=== PATIENT | female | born 1960 | race Caucasian/White ===

== ENCOUNTER 2018-09-28 02:24 | Emergency (ER) | payer OTHER, SELFPAY ==
--- NOTE | 2018-09-28 02:39 | ED.GENADUL_ITS ---
Discharge Plan Disposition Patient Disposition: HOME Condition: Good Discharge Details Chief Complaint: Urinary Clinical Impression: Calculus of proximal left ureter Primary Care Provider: Agnes Jiang ED Provider: Neeraj Loera [place] Meds and New Rx's Prescriptions: New ibuprofen 600 mg tablet 600 mg PO TID PRN (Reason: pain) Qty: 20 RF: 0 ondansetron 4 mg tablet,disintegrating 4 mg PO QID PRN (Reason: nausea and vomiting) Qty: 10 RF: 0 hydrocodone-acetaminophen 5-300 mg tablet 1 tab PO Q4H PRN (Reason: pain) Qty: 10 RF: 0 tamsulosin [Flomax] 0.4 mg capsule 0.4 mg PO DAILY Qty: 20 RF: 0 Discharge Instructions Instructions: Ureteral Stones (ED) Additional Instructions: You have a 5 mm kidney stone in the proximal left ureter. This may or may not pass on its own. Stay hydrated. Use Motrin for pain. Vicodin for breakthrough pain. Flomax daily. Zofran if needed for nausea. Contact urology on Sunday for follow-up if you have not passed the stone over the weekend. Return to ED if you develop fever, uncontrolled pain, uncontrolled vomiting Referrals: Oniel Webb MD [ [facility] STAFF PHYSICIAN] - Medical Decision Making Patient with left flank pain sudden onset tonight. History of kidney stones and reports that it feels the same. Urinalysis already obtained and is positive for blood. Patient uncomfortable with left CVAT. IV established. Laboratory studies sent. CT scan ordered. Fluids, Toradol, Zofran ordered for symptoms. Toradol did not help the patient. She was given morphine. White count is normal. Kidney function normal. CT scan shows a 5 mm UPJ stone with mild hydronephrosis. Pain is better controlled with morphine. She is very comfortable. Still has some residual pain so we will get a Vicodin. We will also start Flomax. Will discharge home to follow-up with urology this week. Return to ED for fever, uncontrolled pain, uncontrolled vomiting. Reviewed the [place] prescription database. Patient has no narcotic prescriptions in the last year. State consent form signed. Information sheet given to patient. Lab Data Lab results reviewed: Yes I reviewed the patient's lab results. HPI General Mode of arrival: wheelchair . Date/Time Provider Initiated Documentation: 09/28/18 02:37 . Limitations to Documentation: no limitations . Information obtained by: patient . HPI Narrative: Patient presents to ED with left back pain. Patient noticed a twinge yesterday but did not think much of it as it went away. Had recurrent pain at 1 AM. Pain has progressed and is now causing nausea/vomiting. She describes a 10 out of 10 pain like previous kidney stones. She denies any fever. She denies chest pain or shortness of breath. She has no abdominal pain. She has no urinary symptoms. 2 previous stones that she has had passed on their own with no surgical intervention. Related Data Home Medications Medication Instructions Recorded Confirmed hydrocodone-acetaminophen 1 tab PO Q4H PRN #10 tab 09/28/18 ibuprofen 600 mg PO TID PRN #20 tab 09/28/18 ondansetron 4 mg PO QID PRN #10 tab 09/28/18 tamsulosin [Flomax] 0.4 mg PO DAILY #20 cap 09/28/18 Previous Rx's Medication Instructions Recorded hydrocodone-acetaminophen 1 tab PO Q4H PRN #10 tab 09/28/18 ibuprofen 600 mg PO TID PRN #20 tab 09/28/18 ondansetron 4 mg PO QID PRN #10 tab 09/28/18 tamsulosin [Flomax] 0.4 mg PO DAILY #20 cap 09/28/18 Allergies Allergy/AdvReac Type Severity Reaction Status Date / Time No Known Allergies Allergy Unverified 09/28/18 02:49 Review of Systems Review of Systems As documented in HPI otherwise negative as below. Const: no fever, chills, weakness Resp: no cough, SOB, pleuritic pain CV: no CP, diaphoresis, edema, syncope GI: nausea/vomiting; no abdominal pain, diarrhea Neuro: no headache, numbness, focal weakness, confusion PFSH Medical History Endometriosis Hyperlipidemia Impingement syndrome of shoulder region Kidney stone Microscopic hematuria Mixed anxiety and depressive disorder Osteoarthritis Plantar fasciitis Syncope and collapse THYROMEGALY TILT TABLE TEST POSITIVE Tremor Surgical History BSO (~1999) Cholecystectomy (~2000) HYSTERECTOMY (~1999) Family History Mother Ruptured cerebral aneurysm Father Hypertensive disorder, systemic arterial Diabetes Depression Sister No problems noted. Sister No problems noted. Brother No problems noted. Brother No problems noted. Brother No problems noted. Brother No problems noted. Aunt Hypothyroidism Social History Smoking/Tobacco Use Status: Never Alcohol Intake: never Drug use: Never Do you feel safe at home: Yes Do you feel safe in your relationship?: Yes Exam Narrative Exam Narrative: Vitals: Afebrile. Mildly elevated blood pressure. Const: Obese female appears uncomfortable. HEENT: NC/AT. Normal facial exam. Eyes: Normal conjunctiva and sclera. Neck: Supple. Trachea midline. Lungs: Normal respiratory effort. Lungs are clear. Cor: RRR without murmur/gallop. Good radial pulses. GI: Soft. NT/ND. No guarding or rebound. Back: Left CVAT. Neuro: A+O x 3. CN grossly in tact. Good strength and no focal deficit. Skin: Warm and dry without rash.
[2018-09-28 02:44] VITALS: BP 126/95; PULSE 68; RESP 18; TEMP 36.4; O2SAT 95
[2018-09-28 02:52] LABS: Bilirubin Negative (Negative); Blood Large (Negative); Clarity Clear; Glucose Negative (Negative); Ketones Negative (Negative); Leukocyte Esterase Negative (Negative); Nitrite Negative (Negative); Specific Gravity 1.025 (1.005-1.025); Urobilinogen 0.2 EU/dL (Up TO 0.2)
[2018-09-28 02:58] LABS: Bacteria Few HPF (Negative); C & S Indicated? No/Sq. Contamination; Casts Negative LPF (Negative); Crystals Negative HPF (Negative); Epithelial Cells Many HPF (Negative); Mucus Negative (Negative); RBC 20-50 (0-2); WBC 0-2 HPF (0-5)
[2018-09-28] MEDS: Ketorolac 15 MG/ML VIAL IVP (03:07)
[2018-09-28] MEDS: Ondansetron 4 MG/2 ML VIAL IVP (03:07)
[2018-09-28] MEDS: Normal Saline 1,000 ML 1000 ML IV (03:08)
[2018-09-28 03:25] LABS: Abs Immature Grans 0.02 k/cumm (0.0-0.09); Absolute Basophil Count 0.02 k/cumm (0.0-0.2); Absolute Eosinophil Count 0.23 k/cumm (0.0-0.7); Absolute Lymphocyte Count 2.08 k/cumm (1.2-3.4); Absolute Monocyte Count 0.46 k/cumm (0.11-0.7); Absolute Neutrophil Count 5.07 k/cumm (1.2-6.7); Basophils % 0.3; Eosinophils % 2.9; HCT 39.2 % (36.0-46.0); HGB 13.2 g/dL (12.0-15.5); Immature Grans % 0.3; Lymphocytes % 26.4; Mean Corp. HGB Concentration 33.7 g/dL (32.0-36.0); Mean Corpuscular Hemoglobin 28.8 pg (27.0-33.0); Mean Corpuscular Volume 85.6 fL (80-95); Mean Platelet Volume 11.4 fL (8.0-11.0); Monocytes % 5.8; Neutrophils % 64.3; Platelet Count 239 x1000/uL (130-400); RBC 4.58 m/cumm (4.00-5.20); RBC Distribution Width 14.8 % (11.7-14.6); White Blood Cell Count 7.88 k/cumm (4.4-10.8)
[2018-09-28 03:34] LABS: Anion Gap 9.2 mmol/L (3-11); BUN 17 mg/dL (7-18); CO2 25.8 mmol/L (21.0-32.0); CREATININE 0.81 mg/dL (0.55-1.02); Chloride 102 mmol/L (98-107); Glucose 112 mg/dL (70-100); Potassium 3.8 mmol/L (3.5-5.1); Sodium 137 mmol/L (136-145)
--- NOTE | 2018-09-28 04:04 | DI.CT_ITS ---
SYMPTOM/DIAGNOSIS: LT FLANK PAIN RENAL COLIC CT: There is a 5 mm. stone at the left ureteropelvic junction causing mild hydronephrosis. No additional urinary tract calculi are seen. The right kidney shows a cyst at the mid to lower pole. The bladder is unremarkable. The patient is status post hysterectomy. There is no bowel dilatation or inflammatory change. The appendix appears normal. There is no free air or free fluid. The visualized portions of the lung bases appear clear. The liver, spleen, pancreas and adrenals are unremarkable. The patient is status post cholecystectomy. IMPRESSION: 5 mm. stone at the left ureteropelvic junction causing mild hydronephrosis.
[2018-09-28 04:25] VITALS: BP 119/61; PULSE 90; RESP 97; TEMP 36.8
--- NOTE | 2018-09-28 04:43 | DI.VRAD_ITS ---
EXAM: CT Abdomen and Pelvis Without Contrast EXAM DATE/TIME: 09/28/2018 3:03 AM CLINICAL HISTORY: 57 years old, female; Abdominal pain; Flank; Left; Prior surgery; Surgery date: 6+ months; Surgery type: Hysterectomy, gallbladder TECHNIQUE: Imaging protocol: Axial computed tomography images of the abdomen and pelvis without contrast. Coronal and sagittal reformatted images were created and reviewed. Radiation optimization: All CT scans at this facility use at least one of these dose optimization techniques: automated exposure control; mA and/or kV adjustment per patient size (includes targeted exams where dose is matched to clinical indication); or iterative reconstruction. COMPARISON: No relevant prior studies available. FINDINGS: ABDOMEN: Liver: No suspicious lesions. Gallbladder and bile ducts: Cholecystectomy. Pancreas: Unremarkable. Spleen: No suspicious lesions. Adrenals: Adrenal glands are mildly hypertrophied. Kidneys and ureters: 5 mm left UPJ stone causing mild hydronephrosis. Stomach and bowel: Unremarkable. No inflammed or dilated loops. Appendix: No evidence of appendicitis. PELVIS: Bladder: Unremarkable as visualized. Reproductive: Unremarkable as visualized. ABDOMEN and PELVIS: Intraperitoneal space: No free air. No significant fluid collection. Bones/joints: No acute fracture. No dislocation. Soft tissues: Unremarkable. Vasculature: Unremarkable. Lymph nodes: Unremarkable. IMPRESSION: 5 mm left UPJ stone causing mild hydronephrosis. Dictated and Authenticated by: Nicolás Luis MD. Ordering:LANDY Pickard MD
[2018-09-28] MEDS: HYDROcodone 5/Acetaminophen 325 TAB PO (04:59)
[2018-09-28] MEDS: Tamsulosin 0.4 MG CAPCR PO (04:59)
[2018-09-28 05:12] VITALS: BP 118/68; PULSE 80; RESP 16; TEMP 36.7; O2SAT 97
== END 2018-09-28 05:13 | disposition home or self-care (01) ==
PROVIDERS: Emergency Provider Emergency Medicine; PCP Family Medicine
DX: N13.0 Hydronephrosis with ureteropelvic junction obstruction (principal); Z87.442 Personal history of urinary calculi
CPT/HCPCS: 36415; 80048; 96361; 96374; 96375; 99284; 74176; 81003; 81015; 85025; J1885; J2405

== ENCOUNTER 2020-05-22 14:34 | Outpatient (REF) | payer OTHER, SELFPAY | END 2020-05-22 14:54 | LOC: LBN 14:34 | PROVIDERS: PCP Nurse Practitioner Family; Visit Provider Nurse Practitioner Family | DX: N39.0 Urinary tract infection, site not specified (principal) | CPT/HCPCS: 87077; 87086; 87186 ==

== ENCOUNTER 2020-07-24 01:34 | Emergency (ER) | payer OTHER, SELFPAY ==
[2020-07-24 01:45] VITALS: BP 123/78; PULSE 71; RESP 16; TEMP 36.7; O2SAT 98
--- NOTE | 2020-07-24 02:05 | W.ED.GENAD ---
Discharge Plan Disposition Patient Disposition: HOME Condition: Stable Discharge Details Clinical Impression: Left ureteral calculus Primary Care Provider: Natalie Sanchez ED Provider: Ric Gatica Home Meds and New Rx's Prescriptions: New levofloxacin 750 mg tablet 750 mg PO DAILY Qty: 5 RF: 0 ondansetron 4 mg tablet,disintegrating 4 mg PO Q8H PRN (Reason: nausea and vomiting) Qty: 30 RF: 0 oxycodone 5 mg tablet 5 mg PO Q8H PRNQty: 12 RF: 0 Continued ibuprofen 600 mg tablet 600 mg PO TID PRN (Reason: pain) Qty: 20 RF: 0 Discharge Instructions Instructions: Kidney Stones (ED) Additional Instructions: Your cat scan showed a 5mm kidney stone follow up with your urologist as soon as possible you can take 1000mg tylenol and 600mg ibuprofen every 6 hours as needed for pain. If you need additional pain relief take 1 oxycodone, do not drink alcohol or drive if you take this medicine if you have severe worsening pain, fevers or persistent vomit return to the emergency department Medical Decision Making 59 yo female who states she has a history of kidney stones comes in with chief compalint of I have a kidney stone. She states her last kidney stone was in september of 2018. She was feeling fine but then had sudden left sided back and oblique pain with nausea, no vomit and denies fevers or abdominal pain. She arrives in pain with no cva tenderness, no abdominal tenderness, no midline back pain. Given the acute onset of symptoms and her history suspect kidney stone, denies dysuria or changes in urination so doubt infection. Will obtain ct renal colic to evaluate for stone and reassess after she receives medication. Given lack of abdominal tenderness doubt intrabdominal pathology such as appendicitis or sbo. labs unremarkable other than hematuria and ct on my read shows left ureteral calculus. She feels significantly better, no vomit and no abdominal tenderness. If vrad sees no other acute findings will d/c and she is comfortable with following up with her urologist [place] [facility] from [facility] confirms 5mm kidney stone at left upj and also has mild stranding. Given this finding will start on antibiotics to treat possible uti as well, no fevers, leukocytosis or other findings to suggest sepsis at this time. She feels well enough for d/c and will have her f/u with her urologist carmelita and return precautions given Differential Diagnosis Differential Diagnosis: kidney stone, pyelo, cystitis Medical Records Medical records reviewed: Yes I reviewed the patient's medical records. Imaging Data Radiologic Study: Attestation: I personally reviewed and interpreted this imaging study as follows: Imaging: CT Scan Radiologist's impression: IMPRESSION: 1. Mild left perinephric stranding. Left hydronephrosis with 5 mm calcified stone at the left UPJ. (a stone was identified in a similar location on a prior examination dated 09/28/2018) 2. A few scattered colon diverticuli without evidence of diverticulitis Lab Data Lab results reviewed: Yes I reviewed the patient's lab results. HPI General Mode of arrival: ambulatory. Date/Time Provider Initiated Documentation: 07/24/20 01:35. Limitations to Documentation: no limitations. Information obtained by: patient. History of Present Illness 59 year old F presents to the emergency department with the chief complaint of left flank pain, described as moderate, Patient started experiencing this hour(s) (2) and it has been constant. No relieving factors improve symptom(s), No exacerbating factors reported . Patient did receive the following treatments prior to arrival, none Related Data Home Medications Medication Instructions Recorded Confirmed ibuprofen 600 mg PO TID PRN #20 tab 09/28/18 07/24/20 levofloxacin 750 mg PO DAILY #5 tab 07/24/20 ondansetron 4 mg PO Q8H PRN #30 tab 07/24/20 oxycodone 5 mg PO Q8H PRN #12 tab 07/24/20 Previous Rx's Medication Instructions Recorded ibuprofen 600 mg PO TID PRN #20 tab 09/28/18 levofloxacin 750 mg PO DAILY #5 tab 07/24/20 ondansetron 4 mg PO Q8H PRN #30 tab 07/24/20 oxycodone 5 mg PO Q8H PRN #12 tab 07/24/20 Allergies Allergy/AdvReac Type Severity Reaction Status Date / Time No Known Allergies Allergy Unverified 07/24/20 01:56 General Stated Complaint: FlankPain MAK: 3 Review of Systems All systems reviewed & are unremarkable except as noted in HPI and below Constitutional Constitutional: Denies chills, Denies fever(s) and Denies weakness Cardiovascular Cardiovascular: Denies chest pain and Denies dyspnea Respiratory Respiratory: Denies cough and Denies dyspnea Gastrointestinal Gastrointestinal: Denies abdominal pain and Denies vomiting Musculoskeletal Musculoskeletal: Denies joint swelling Neurologic Neurologic: Denies weakness [facility] Medical History Endometriosis Generalized anxiety disorder Hyperlipidemia Kidney stone Major depressive disorder Microscopic hematuria Negative cystoscopy Neurocardiogenic syncope Obstructive sleep apnea Osteoarthritis Recurrent cystitis Tubular adenoma of colon Surgical History History of total hysterectomy with bilateral salpingo-oophorectomy (BSO) S/P cholecystectomy Family History Mother , 66 Ruptured cerebral aneurysm Father , 88 Diabetes Depression Hypertension Dementia Sister Diabetes Breast cancer 40s Sister No problems noted. Brother No problems noted. Brother No problems noted. Brother Parkinson disease Brother Diabetes Paternal Grandfather Stroke Paternal Grandmother , 70 Depression Maternal Grandfather No problems noted. Maternal Grandmother Liver cancer Social History Smoking/Tobacco Use Status: Never Smoking risk assessment performed?: Yes Alcohol Intake: current Alcohol Intake frequency: a few times a month Alcohol type: beer, wine and hard liquor Drug use: Never Substance use type: does not use Caregiver/Support person: No Household members: spouse Housing: house Communication Needs: None Do you need help understanding health information?: Never Pets and animals: Yes Pets and animals: cat(s) Sexually active: Yes Do you think of yourself as: lesbian/purvis/homosexual Current gender identity: female What is your relationship status?: How often do you talk on the phone with friends or family?: three or more times per week How often do you get together with friends or relatives?: three or more times per week How often do you attend taoist or advent services?: 4 or more times per year Panel score (0-1 are the most socially isolated patients): 3 What type of physical activity do you participate in: walking and swimming Duration: 30-45 minutes/day Frequency: 1-2 times per week Willa/Holiness: Muslim Special willa needs: No Agree to transfusion: No Do you feel safe at home: Yes Do you feel safe in your relationship?: Yes History History 0 Para Hx # Term Pregnancies Multiple births Hx # Pregnancies Ectopic pregnancies AB induced Hx Number of Living Children AB spontaneous Exam Const General: no acute distress Orientation: alert HENMT Head: normal to inspection Ears: external ears normal General nose exam: external nose normal Mouth: moist mucous membranes Eyes General: appearance normal, both eyes and all related structures Neck Neck: normal visual inspection Resp Effort & Inspection: normal respiratory effort and able to speak in complete sentences Cardio Rate: regular rate General: bladder normal to palpation Bimanual Exam- Vagina & Uterus: bladder normal to palpation Skin General skin exam: no rashes or lesions noted Neuro General: patient alert and patient oriented x3 Extrem General: normal to inspection Psych Mental Status: mental status grossly normal Course Vital Signs Vital signs: Vital Signs Temperature 36.7 C 07/24/20 01:45 Pulse 71 07/24/20 01:45 Respiratory Rate 16 07/24/20 01:45 Blood Pressure 123/78 07/24/20 01:45 Pulse Oximetry 98 07/24/20 01:45 Temperature 36.7 C 07/24/20 01:45 Temperature Source Skin 07/24/20 01:45 Pulse 71 07/24/20 01:45 Respiratory Rate 16 07/24/20 01:45 Blood Pressure 123/78 07/24/20 01:45 Blood Pressure Position Sitting 07/24/20 01:45 Pulse Oximetry 98 07/24/20 01:45 Oxygen Delivery Method Room Air 07/24/20 01:45 Oxygen Flow Rate 0 07/24/20 01:45 Pain Level 10 07/24/20 01:45
[2020-07-24 02:20] LABS: Abs Immature Grans 0.02 10^3/uL (0.0-0.06); Absolute Basophil Count 0.05 10^3/uL (0.0-0.2); Absolute Eosinophil Count 0.24 10^3/uL (0.0-0.7); Absolute Lymphocyte Count 1.85 10^3/uL (1.2-3.4); Absolute Monocyte Count 0.55 10^3/uL (0.1-0.8); Absolute Neutrophil Count 5.32 10^3/uL (1.2-6.7); Basophils % 0.6; HCT 36.4 % (36.0-46.0); HGB 12.1 g/dL (11.2-15.7); Immature Grans % 0.2; MCH 28.7 pg (27.0-33.0); MCHC 33.2 % (32.0-36.0); MCV 86.3 fL (80-95); MPV 11.4 fL (8.0-11.0); Monocytes % 6.8; Neutrophils % 66.4; Nucleated RBC 0 %; Platelet Count 219 10^3/uL (130-400); RBC 4.22 10^6/uL (3.93-5.22); RDW-SD 44.3 fL; WBC 8.03 10^3/uL (4.4-10.8)
[2020-07-24] MEDS: Normal Saline 1,000 ML 1000 ML IV (02:20)
[2020-07-24] MEDS: Ketorolac 15 MG/ML VIAL IVP (02:20)
[2020-07-24] MEDS: Ondansetron 4 MG/2 ML VIAL IVP (02:20)
[2020-07-24 02:21] LABS: Bilirubin Negative (Negative); Blood Large (Negative); Clarity Sl Cloudy (Clear); Glucose Negative (Negative); Ketones Negative (Negative); Leukocyte Esterase Negative (Negative); Nitrite Negative (Negative); Specific Gravity 1.025 (1.005-1.025)
[2020-07-24 02:25] LABS: Bacteria Rare HPF (Negative); C & S Indicated? No; Casts Negative LPF (Negative); Crystals Negative HPF (Negative); Epithelial Cells Few HPF (Negative); Mucus Negative (Negative); WBC Negative HPF (0-5)
[2020-07-24 02:37] LABS: ALT 27 U/L (14-59); AST 15 U/L (15-37); Albumin 3.5 g/dL (3.4-5.0); Alkaline Phosphatase 95 U/L (46-116); Anion Gap 9.2 mmol/L (3-11); BUN 20 mg/dL (7-18); Bilirubin, Total 0.3 mg/dL (0.2-1.0); CO2 26.8 mmol/L (21.0-32.0); CREATININE 0.9 mg/dL (0.55-1.02); Calcium 8.4 mg/dL (8.5-10.1); Chloride 105 mmol/L (98-107); Glucose 117 mg/dL (74-106); Potassium 3.6 mmol/L (3.5-5.1); Sodium 141 mmol/L (136-145); Total Protein 7.5 g/dL (6.4-8.2)
--- NOTE | 2020-07-24 02:44 | DI.CT_ITS ---
EXAM: CT RENAL COLIC WO INDICATION: left flank pain. COMPARISON: CT CT renal colic wo from 09/28/2018 TECHNIQUE: CT examination was performed without contrast administration. FINDINGS: Images obtained through the lung bases are unremarkable. Visualized portions of the liver and splee n appear intact. Visualized portions of the pancreas are unremarkable. Prior cholecystectomy noted, bile ducts are CT normal. Abdominal aorta is of normal diameter. No significant abdominal wall hernia. No significant abdominal or pelvic adenopathy. Normal appeara nce of the appendix. Stable low-attenuation left adrenal nodule noted, no change from CT of September 2018. There are apparent bilateral renal cysts which are stable from the prior study of 2018. There is lef t hydronephrosis with an obstructing 5 millimeter in diameter stone at the ureteropelvic junction on the left. An additional tiny collecting system calcification is noted on the left. No right hydrone phrosis, nephrolithiasis, or ureterolithiasis. Urinary bladder grossly unremarkable. The uterus appears atrophic or absent. Please correlate clinically. IMPRESSION: 5 millimeter obstructing left UPJ stone as described above. A stone was also noted in approximately this position on the prior CT of September 2018. RADIATION DOSE DELIVERED: 1,165.91mGy.cm DLP 1,165.91mGy.cm Total DLP
--- NOTE | 2020-07-24 03:31 | DI.VRAD_ITS ---
PROCEDURE INFORMATION: Exam: CT Abdomen And Pelvis Without Contrast Exam date and time: 07/24/2020 2:44 AM Age: 59 years old Clinical indication: Abdominal pain; left flank pain TECHNIQUE: Imaging protocol: Computed tomography of the abdomen and pelvis without contrast. Radiation optimization: All CT scans at this facility use at least one of these dose optimization techniques: automated exposure control; mA and/or kV adjustment per patient size (includes targeted exams where dose is matched to clinical indication); or iterative reconstruction. COMPARISON: CT renal colic wo 09/28/2018 3:51 AM FINDINGS: Lungs: No acute infiltrate in either lung base. Liver: Normal visualized portions of the unenhanced liver. Gallbladder and bile ducts: Status post cholecystectomy. No biliary tract dilatation. Pancreas: Normal. No ductal dilation. Spleen: Normal. No splenomegaly. Adrenal glands: Normal right adrenal gland. Stable low-density left adrenal adenoma. Kidneys and ureters: Mild left perinephric stranding. Left hydronephrosis with 5 mm calcified stone at the left UPJ. Bilateral renal cortical cysts. Small complex cyst or nodule inferior right renal cortex. Stomach and bowel: No generalized ileus or bowel obstruction. A few scattered colon diverticuli without evidence of diverticulitis. Appendix: Normal appendix. Intraperitoneal space: No free air. No significant fluid collection. Vasculature: Unremarkable. No abdominal aortic aneurysm. Lymph nodes: Unremarkable. No enlarged lymph nodes. Urinary bladder: Unremarkable as visualized. Reproductive: Status post hysterectomy. Bones/joints: Unremarkable. No acute fracture. Soft tissues: Small fat-containing umbilical hernia. IMPRESSION: 1. Mild left perinephric stranding. Left hydronephrosis with 5 mm calcified stone at the left UPJ. (a stone was identified in a similar location on a prior examination dated 09/28/2018) 2. A few scattered colon diverticuli without evidence of diverticulitis. Dictated and Authenticated by: Mj Iraheta MD. Ordering:FRANKO Larios MD
[2020-07-24 03:33] VITALS: BP 123/72; PULSE 65; O2SAT 95
[2020-07-24] MEDS: levoFLOXacin 500 MG, levoFLOXacin 250 MG 750 MG PO (03:52)
== END 2020-07-24 04:03 | disposition home or self-care (01) ==
PROVIDERS: Emergency Provider Emergency Medicine; PCP Nurse Practitioner Family
DX: N13.2 Hydronephrosis with renal and ureteral calculous obstruction (principal); Z87.442 Personal history of urinary calculi
CPT/HCPCS: 36415; 80053; 96361; 96374; 96375; 99284; 74176; 81003; 81015; 85025; 87086; J1885; J2405

== ENCOUNTER 2020-08-24 12:38 | Outpatient (REF) | payer OTHER, SELFPAY | END 2020-08-24 12:39 | disposition home or self-care (01) | LOC: LBN 12:38 | PROVIDERS: PCP Nurse Practitioner Family; Visit Provider Nurse Practitioner Family | DX: J02.9 Acute pharyngitis, unspecified (principal) | CPT/HCPCS: 87070 ==

== ENCOUNTER 2020-09-30 03:16 | Outpatient (CLI) | payer OTHER, SELFPAY ==
[2020-09-30 09:47] LABS: Hemoglobin A1C 5.1 % (<5.7)
[2020-09-30 10:30] LABS: Anion Gap 8.2 mmol/L (3-11); BUN 18 mg/dL (7-18); CO2 28.8 mmol/L (21.0-32.0); CREATININE 0.7 mg/dL (0.55-1.02); Calcium 9.2 mg/dL (8.5-10.1); Calculated LDL 143 mg/dL (<100); Chloride 106 mmol/L (98-107); Cholesterol 207 mg/dL (<200); Glucose 98 mg/dL (74-106); HDL Cholesterol 39 mg/dL (40-60); Potassium 3.9 mmol/L (3.5-5.1); Sodium 143 mmol/L (136-145); Triglyceride 127 mg/dL (<150)
== END 2020-09-30 03:17 | disposition home or self-care (01) ==
LOC: LBO 03:16
PROVIDERS: PCP Nurse Practitioner Family; Visit Provider Nurse Practitioner Family
DX: E78.5 Hyperlipidemia, unspecified (principal)
CPT/HCPCS: 36415; 80048; 80061; 83036

== ENCOUNTER 2020-12-30 09:14 | Outpatient (CLI) | payer OTHER, SELFPAY ==
--- NOTE | 2020-12-30 08:45 | DI.RAD_ITS ---
Exam(s) XR ANKLE RT COMPLETE EXAM: XR ANKLE RT COMPLETE CLINICAL HISTORY: chronic right ankle pain, M25.571, chronic pain, G89.29. TECHNIQUE: 2D digital imaging was performed. COMPARISON: No exams were available for comparison FINDINGS: No evidence of fracture or widening of the mortise. However, there is a prominent subarticular lucen cy in the medial talar dome measuring 7 millimeters wide by 9 millimeters deep. By 10 millimeters AP . Osteochondral defect versus degenerative subarticular cyst. There is, however, minimal degenerati ve changes in the ankle and subtalar joint noted. Malleoli appear unremarkable. Calcification is no supa posteriorly at the insertional aspect of the Achilles on the posterior calcaneus. IMPRESSION: Medial talar dome lucency is described above. If clinically indicated this could be further studied with ankle MRI. DATA REPOSITORY: RADIATION DOSE DELIVERED:
== END 2020-12-30 09:34 ==
PROVIDERS: PCP Nurse Practitioner Family; Visit Provider Nurse Practitioner Family
DX: M25.571 Pain in right ankle and joints of right foot; G89.29 Other chronic pain; R93.6 Abnormal findings on diagnostic imaging of limbs
CPT/HCPCS: 73610

== ENCOUNTER 2021-02-16 01:34 | Outpatient (CLI) | payer OTHER, SELFPAY ==
--- NOTE | 2021-02-16 07:15 | DI.MAMMO_ITS ---
Exam(s) MAMMO SCREENING EXAM: MAMMO SCREENING CLINICAL HISTORY: screening,z12.39 TECHNIQUE: Mammograms were interpreted according to the usual protocol including computer analysis w [employer] CAD system, tomosynthesis and C-view imaging. COMPARISON: FINDINGS: The breasts are of moderate density with fairly symmetrical distribution of fibroglandular tissue. N o dominant mass or clumped microcalcification is identified in either breast. The current examinatio n is compared with previous examinations including February 2020 and there has been no gross interval change in appearanceIn comparison with the prior studies. IMPRESSION: No specific evidence of malignancy at this time. Routine screening examinations are recommended at yearly intervals due to the family history of breast carcinoma. BI-RADS Category 1 - Negative Breast Density - Category B - Scattered areas of fibroglandular density
== END 2021-02-16 01:54 ==
PROVIDERS: PCP Nurse Practitioner Family; Visit Provider Nurse Practitioner Family
DX: Z12.31 Encounter for screening mammogram for malignant neoplasm of breast (principal); Z80.3 Family history of malignant neoplasm of breast
CPT/HCPCS: 77063; 77067

== ENCOUNTER 2021-11-03 03:22 | Outpatient (CLI) | payer OTHER, SELFPAY ==
[2021-11-03 09:28] LABS: HCT 40.5 % (36.0-46.0); HGB 13.8 g/dL (11.2-15.7); MCH 28.7 pg (27.0-33.0); MCHC 34.1 % (32.0-36.0); MCV 84 fL (80-95); MPV 11.6 fL (8.0-11.0); Platelet Count 226 10^3/uL (130-400); RBC 4.81 10^6/uL (3.93-5.22); RDW 14.3 % (11.7-14.6); RDW-SD 43.7 fL; WBC 9.46 10^3/uL (4.4-10.8)
[2021-11-03 09:44] LABS: Bilirubin Negative (Negative); Blood Moderate (Negative); Clarity Clear (Clear); Glucose Negative (Negative); Ketones Negative (Negative); Leukocyte Esterase Negative (Negative); Nitrite Negative (Negative); Specific Gravity 1.025 (1.005-1.025); Urobilinogen 0.2 EU/dL (Up TO 0.2)
[2021-11-03 09:51] LABS: Bacteria Rare HPF (Negative); C & S Indicated? No; Casts Negative LPF (Negative); Crystals Negative HPF (Negative); Epithelial Cells Few HPF (Negative); Mucus Trace (Negative); WBC Negative HPF (0-5)
[2021-11-03 10:06] LABS: ALT 24 U/L (14-59); AST 21 U/L (15-37); Albumin 3.7 g/dL (3.4-5.0); Alkaline Phosphatase 68 U/L (46-116); Anion Gap 8.4 mmol/L (3-11); BUN 22 mg/dL (7-18); Bilirubin, Total 0.4 mg/dL (0.2-1.0); CO2 27.6 mmol/L (21.0-32.0); CREATININE 0.7 mg/dL (0.55-1.02); Calcium 8.9 mg/dL (8.5-10.1); Calculated LDL 142 mg/dL (<100); Chloride 104 mmol/L (98-107); Cholesterol 227 mg/dL (<200); Glucose 96 mg/dL (74-106); HDL Cholesterol 43 mg/dL (40-60); Potassium 3.9 mmol/L (3.5-5.1); Sodium 140 mmol/L (136-145); Total Protein 7.9 g/dL (6.4-8.2); Triglyceride 213 mg/dL (<150)
== END 2021-11-03 03:23 | disposition home or self-care (01) ==
LOC: LBO 03:22
PROVIDERS: PCP Nurse Practitioner Family; Visit Provider Family Medicine
DX: E78.5 Hyperlipidemia, unspecified (principal); R53.83 Other fatigue; R10.9 Unspecified abdominal pain; R31.29 Other microscopic hematuria
CPT/HCPCS: 36415; 80053; 80061; 85027; 81003; 81015

== ENCOUNTER 2021-11-07 11:04 | Day surgery (SDC) | payer OTHER, SELFPAY ==
--- NOTE | 2021-11-07 07:12 | W.COLOREPORT ---
Colonoscopy Report Date of procedure: 11/07/21 Pre-op diagnosis general: rectal bleeding Post-op diagnosis procedure note: other (normal up to the hepatic flexure) Procedure: Flexible sigmoidoscopy Surgeon: Denise Beltran Anesthesia Type: General:No Airway Estimated blood loss (mL): 0 Pathology: none sent Complications: None Disposition: same day Indications: Patient describes a 10+ month history of rectal bleeding that most commonly occurs during very stressful times especially at work, which spontaneously resolves most commonly when she is home and resting.? Patient recently had lab work on 11/03/2021, H&H was unremarkable.? The patient denies any rectal or abdominal pain.? She denies any changes in her bowel habit reporting chronic diarrhea following cholecystectomy. Rectal exam and exam with anoscope was unremarkable.? No swelling mucosal irritation or lesions were noted on exam.? Discussed the options with the patient to proceed with a sigmoidoscopy for further evaluation For possible causes of her bleeding.? Given patient's concerns she wishes to proceed with this. She will need to complete 2 Fleet enema's in day surgery the morning of her procedure. -Discussed sigmoidoscopy bowel prep which will be performed in day surgery as well as the procedure. Discussed possible complications of the procedure to include bleeding, pain, perforation, missed small lesion/polyp, sore throat, aspiration and adverse reaction to the medications. Questions were answered to patient?s satisfaction. No guarantees were implied or given.? Prep: Miralax/Dulcolax Procedure Start Time: 13:49 Procedure End Time: 13:57 Findings: Normal colon up to the hepatic flexure No internal hemorrhoids Procedure Description: After informed consent was obtained the patient was taken to the procedure room and placed in a left decubitous position. Monitors were applied and a time out was done. The patients name, date of , procedure, allergies to medications and metal in their body was reviewed. The patient was then sedated. Once sedated and comfortable a rectal exam was done. External exam was normal. Internal exam revealed a normal sphincter tone and no palpable masses. The scope was then introduced and retro-flexed. No internal hemorrhoids, polyps or masses were identified on retro-flexion. The scope was then advanced to the Hepatic flexure without difficulty. The ileocecal vlave and appendiceal orifice were identified. The prep was good. The scope was then slowly retracted back into the rectum. There were no polyps and no diverticulosis noted. The scope was removed and the patient was woken up and taken back to Same day surgery in stable condition. The patient tolerated the procedure well and there were no immediate complications. Follow up: The patient should follow up in 1 year unless they develop changes in bowel habits or other new gastrointestinal complaints.
--- NOTE | 2021-11-07 07:13 | W.PM.DSUDISC ---
Discharge Plan Disposition Patient Disposition: HOME Condition: Good Discharge Details Reason For Visit: rectal bleeding Attending Provider: Denise Beltran Primary Care Provider: Natalie Sanchez Home Meds and New Rx's Prescriptions: Continued ibuprofen 600 mg tablet 600 mg PO TID PRN (Reason: pain) Qty: 20 0RF Discharge Instructions Additional Instructions: Findings: Normal colonoscopy up to the hepatic flexure Follow up: next year for a colonoscopy Please call if you develop: fevers >101.5 Nausea or Vomiting Abdominal pain that is not transient Rectal bleeding that is more then a tbsp A hard abdomen and inability to pass gas DAY SURGERY UNIT POST ENDOSCOPY INSTRUCTIONS Instructions for everyone who is given Anesthesia: For your safety, please do the following for the next 24 Hours: a. Do not drive or operate dangerous equipment b. Do not drink alcohol beverages or use any recreational drugs for the first 24 hours or while taking pain medications. The medications in your body may have a reaction that can be dangerous. c. Do not make any important decisions or sign any important papers 1. Generally there are no restrictions on your activity after a day or so has gone by, but you may feel a bit fatigued for a few days. 2. After you arrive home you may have a light meal and return to a normal diet as you can tolerate it without feeling sick to your stomach. 3. After surgery, you may feel pain or discomfort. This should be only transient, but if it persists please contact your doctor. 4. If there are any questions regarding the findings of your procedure, please feel free to contact your doctor. 6. If you are unable to contact your doctor with a problem, contact the hospital at [phone]. 7. Continue all your regular medications unless directed otherwise. I understand the above instructions and have no questions. Signature of Patient or Responsible Adult Escort Date/Time Name of Responsible Adult Escort Signature of Nurse Date/Time Activity:: Activity as Tolerated Diet:: As Tolerated Discharge Orders Discharge Orders: Discharge Order (Routine); Ordered 11/07/21 Ordered By: Denise Beltran
[2021-11-07 11:35] VITALS: BP 152/82; PULSE 62; RESP 16; TEMP 36.4; O2SAT 98
[2021-11-07] MEDS: Lactated Ringers 1,000 ML 80 ML IV (11:59)
--- NOTE | 2021-11-07 13:23 | ANES.PREOP_ITS ---
General Info Date of Service Date Performed: 11/07/21 Height: 5 ft 8 in Weight: 113 kg Body Mass Index (BMI): 37.8 Surgical Procedure: Operation Date: 11/07/21 12:55 Proposed Procedure Side Surgeon p Flexible Sigmoidoscopy w/Possible Internal Hemorrhoid Banding Denise Beltran MD Meds Allergies and Home Medications Allergies Allergy/AdvReac Type Severity Reaction Status Date / Time No Known Allergies Allergy Verified 11/07/21 11:41 Home Medication Medication Instructions Recorded ibuprofen 600 mg tablet 600 mg PO TID PRN pain #20 tabs 09/28/18 Current Visit Medications: Current Medications Generic Name Dose Route Start Last Admin Trade Name Freq PRN Reason Stop Dose Admin Hyoscyamine Sulfate 0.125 mg 11/07/21 07:14 Hyoscyamine 0.125 Mg Sl/Oral/Chew SL DIRECTED PRN Ringer's Solution 1,000 mls @ 80 mls/hr 11/07/21 06:00 11/07/21 11:59 IV 12/04/21 23:59 80 mls/hr INFUSION CARRINGTON Administration IV Miscellaneous Supplies 1 each 11/07/21 06:00 Iv Access IV 12/04/21 23:59 DIRECTED CARRINGTON Ondansetron HCl 4 mg 11/07/21 07:14 Ondansetron 4 Mg/2 Ml Vial IVP Q4H PRN PRN Nausea / Vomiting Sodium Biphosphate/Sodium Phosphate 133 ml 11/07/21 06:00 11/07/21 12:20 Na Phosphate Enema 133 Ml Btl IA 11/08/21 06:01 1 btl PREOP CARRINGTON Administration Sodium Chloride 0 ml 11/07/21 06:00 Normal Saline Flush 10 Ml Syr IV 12/04/21 23:59 PRN PRN Sodium Chloride 0 ml 11/07/21 06:00 Normal Saline 10 Ml Vial IJ 12/04/21 23:59 DIRECTED PRN Sterile Water 0 ml 11/07/21 06:00 Water,Injection,Sterile 10 Ml Vial IJ 12/04/21 23:59 DIRECTED PRN PFSH Active Problems Active Problems: Problem Status Onset Code Tubular adenoma of colon D12.6 Obstructive sleep apnea G47.33 Obesity E66.9 Rectal bleeding K62.5 Medical History Medical History (Updated 11/07/21 @ 11:41 by Ирина Ye RN) Chronic pain of right ankle Endometriosis Generalized anxiety disorder History of kidney stones Hyperlipidemia Kidney stone Left ureteral calculus Major depressive disorder Microscopic hematuria Negative cystoscopy Osteoarthritis Recurrent cystitis Right hand weakness Medical History Comments:: Get pt. up slowly (vasovagal episodes-hasn't happened for a while per pt. ) Has CPAP but hasnt used for 6 months becuase her Kia CPAP has been recalled. Surgical History Surgical History History of total hysterectomy with bilateral salpingo-oophorectomy (BSO) S/P cholecystectomy Tobacco Smoking/Tobacco Use Status: Never Second hand exposure: Yes Alcohol Alcohol Intake: current Alcohol intake frequency: a few times a month Alcohol type: beer, wine and hard liquor Substance Use Substance use: Never Substance use type: does not use Prental History History 0 Para Hx # Term Pregnancies Multiple births Hx # Pregnancies Ectopic pregnancies AB induced Hx Number of Living Children AB spontaneous Vital Signs and Lab Results Vital Signs Most Recent Vital Signs in EMR: Most Recent Vital Signs Temp Pulse Resp BP Pulse Ox 36.4 C L 62 16 152/82 H 98 11/07/21 11:35 11/07/21 11:35 11/07/21 11:35 11/07/21 11:35 11/07/21 11:35 Lab Results Blood Type / Crossmatch: No Data to Display Complete Blood Count: White Blood Count 9.46 10^3/uL (4.4-10.8) 11/03/21 09:17 Red Blood Count 4.81 10^6/uL (3.93-5.22) 11/03/21 09:17 Hemoglobin 13.8 g/dL (11.2-15.7) 11/03/21 09:17 Hematocrit 40.5 % (36.0-46.0) 11/03/21 09:17 Platelet Count 226 10^3/uL (130-400) 11/03/21 09:17 Complete Metabolic Panel: Sodium Level 140 mmol/L (136-145) 11/03/21 09:17 Potassium Level 3.9 mmol/L (3.5-5.1) 11/03/21 09:17 Chloride Level 104 mmol/L (98-107) 11/03/21 09:17 Carbon Dioxide Level 27.6 mmol/L (21.0-32.0) 11/03/21 09:17 Blood Urea Nitrogen 22 mg/dL (7-18) H 11/03/21 09:17 Creatinine 0.7 mg/dL (0.55-1.02) 11/03/21 09:17 Estimated GFR/1.73 m2 >= 60.00 (mL/min/1.73m2) 11/03/21 09:17 Calcium Level 8.9 mg/dL (8.5-10.1) 11/03/21 09:17 Albumin 3.7 g/dL (3.4-5.0) 11/03/21 09:17 Glucose Level 96 mg/dL (74-106) 11/03/21 09:17 Liver Function Panel: Alanine Aminotransferase (ALT/SGPT) 24 U/L (14-59) 11/03/21 09: 17 Aspartate Amino Transf (AST/SGOT) 21 U/L (15-37) 11/03/21 09:17 Coagulation Panel: No Data to Display Cardiac Panel: No Data to Display Arterial Blood Gas: No Data to Display Venous Blood Gas: No Data to Display Pancreas Panel: No Data to Display Thyroid Panel: No Data to Display Infectious Disease: No Data to Display Blood Cultures: No Data to Display Toxicology Panel: No Data to Display Anesthesia Assessment and Plan Anesthesia History Personal History: No History of Anesthesia Complications Family History: No Family History of Anesthesia Complications Exercise Tolerance Exercise Tolerance: Metabolic Equivalents>4 Pertinent Negatives Pertinent Negatives: No Symptoms of GERD, No Major Cardiovascular Symptoms or Complaints, No Major Pulmonary Symptoms or Complaints and No History of CVA/TIA Cardiac & Pulmonary Exam Cardiac Exam: Normal S1/S2 Heart Sounds Pulmonary Exam: Clear Bilateral Breath Sounds Implantable Cardiac Device Does patient have a Pacemaker or an ICD?: No Airway Exam Known Difficult Airway: No Mallampati Class: 2 Mouth Opening: Normal (> 3cm) Thyromental Distance: Greater than 3 cm Neck Range of Motion: Full ROM Neck Circumference: Normal Teeth Condition: Normal Dentition Tooth Numberin. Dental implant ASA Classification ASA Score: ASA 2 Emergency Case?: No NPO Status NPO Status: NPO Clears >2 hours, Solids >8 hours Anesthesia Plan Resuscitation Status: Full Code Anesthesia Technique: General Anesthesia Airway Planned: Natural Airway Monitors Used: Standard Monitors
[2021-11-07 13:40] VITALS: BMI 37.8
[2021-11-07 14:05] VITALS: BP 128/61; PULSE 61; RESP 16; TEMP 36; O2SAT 95
--- NOTE | 2021-11-07 14:30 | W.ANESPOSTOP ---
Postoperative Evaluation Date, Time and Location Date Performed: 11/07/21 Time Performed: 14:30 Patient Location: Day Surgery Unit Vital Signs Most Recent Imported Vital Signs: Most Recent Vital Signs Temp Pulse Resp BP Pulse Ox 36 C L 61 16 128/61 95 11/07/21 14:05 11/07/21 14:05 11/07/21 14:05 11/07/21 14:05 11/07/21 14:05 Pain Score Most Recent Pain Score: Most Recent Pain Score Pain Level 0 11/07/21 14:05 Assessment Mental Status: Awake (Alert & Oriented to Patient Baseline) Airway and Respiratory Function: Patent airway with normal (patient baseline) respiratory exam Cardiovascular Function: Hemodynamically Stable Hydration Status: Adequately Hydrated Nausea & Vomiting: No Nausea or Vomiting Pain: Pt. Denies Any Pain Peripheral Nerve Block: Patient did not receive a nerve block
[2021-11-07 14:32] VITALS: BP 124/69; PULSE 60; RESP 16; TEMP 36.3; O2SAT 94
== END 2021-11-07 15:05 | disposition home or self-care (01) ==
PROVIDERS: PCP Nurse Practitioner Family; Visit Provider Surgery
PROC: 0DJD8ZZ Inspection of Lower Intestinal Tract, Via Natural or Artificial Opening Endoscopic (ICD-10-PCS; CPT 45330; principal; 2021-11-07 12:45)
DX: K62.5 Hemorrhage of anus and rectum (principal); G47.33 Obstructive sleep apnea (adult) (pediatric); F41.1 Generalized anxiety disorder
CPT/HCPCS: 45378

== ENCOUNTER 2022-03-01 16:51 | Outpatient (REF) | payer OTHER, SELFPAY | END 2022-03-01 16:52 | disposition home or self-care (01) | LOC: LBN 16:51 | PROVIDERS: PCP Nurse Practitioner Family; Visit Provider Nurse Practitioner Family | DX: N30.90 Cystitis, unspecified without hematuria (principal) | CPT/HCPCS: 87077; 87086; 87186 ==

== ENCOUNTER → 2022-03-06 02:04 | Outpatient (CLI) | payer OTHER, SELFPAY ==
--- NOTE | 2022-03-06 09:10 | DI.MAMMO_ITS ---
Exam(s) MAMMO SCREENING EXAM: MAMMO SCREENING CLINICAL HISTORY: screening,z12.39 TECHNIQUE: Mammograms were interpreted according to the usual protocol including computer analysis w [employer] CAD system, tomosynthesis and C-view imaging. COMPARISON: 2013 through 2020 FINDINGS: The breasts are composed of scattered fibroglandular densities, Breast Density category B. 10 millimeter area of nodularity seen in the upper inner quadrant of the right breast, not apparent o n the prior exams. Spot compression views and ultrasound are requested for further evaluation. No s uspicious microcalcifications are seen in either breast. No skin thickening or abnormal axillary lymph nodes are seen. There has been no significant change the left breast from prior exams. IMPRESSION: Right breast: BI-RADS Category 0 - Assessment Incomplete: Need additional imaging evaluation Left breast: Category 1, negative mammogram. Yearly screening mammography is recommended. Breast Density - Category B, scattered fibroglandular densities. A negative radiographic report should not delay biopsy if a dominant or clinically suspicious mass is present. Up to ten percent of cancers are not identified on mammography. A negative report may reinforce clinical impression. Adenosis and dense breasts may obscure an underlying neoplasm. False positive reports average 6 to 10%. Patient will receive a letter notifying them of these results.
== END ==
PROVIDERS: PCP Nurse Practitioner Family; Visit Provider Family Medicine
DX: Z12.31 Encounter for screening mammogram for malignant neoplasm of breast (principal); R92.8 Other abnormal and inconclusive findings on diagnostic imaging of breast
CPT/HCPCS: 77063; 77067

== ENCOUNTER → 2022-03-09 03:12 | Outpatient (CLI) | payer OTHER, SELFPAY ==
--- NOTE | 2022-03-09 10:15 | DI.MAMMO_ITS ---
Exam(s) MG MAMMO SCREEN CALL BACK UNI US BREAST RT LIMITED EXAM: MG MAMMO SCREEN CALL BACK UNI and U/S breast RT limited CLINICAL HISTORY: F/U ABNL MAMMO, 10 MM NODULARITY UPPER INNER QUAD RT BREAST. TECHNIQUE: Craniocaudal and mediolateral oblique Full Field Digital Mammography views of the right b reast with Computer Aided Diagnosis followed by Tomosynthesis and right breast ultrasound. COMPARISON: Comparison is made with prior examinations. FINDINGS: Mammography/Tomosynthesis: Masses/Architectural Distortion: The area of concern is less well-defined on the additional views. N o areas of architectural distortion are seen. Microcalcifictions: No suspicious pleomorphic-type are seen. Skin Thickening/Nipple Retraction: None. Limited right breast US: Echotexture: Normal appearance of the glandular tissue. Shadowing: No suspicious foci. Cyst: At the 1 o'clock position 7 cm from the nipple there is a 0.6 x 0.7 x 0.4 cm cyst. At the 2 o' clock position 7 cm from the nipple there is a 0.6 x 0.6 x 0.5 cm cyst. Solid lesions: None seen. Ductal dilation: None. IMPRESSION: 1. No evidence of malignancy is noted. 2. A six-month follow-up right mammogram is recommended for re-evaluation. 3. The findings were discussed with the patient on the date of the examination. BI-RADS Category 3 - 6 month - Probably Benign Finding: Recommend follow-up imaging in 6 months Breast Density - Category B - Scattered areas of fibroglandular density Breast density Category C or D implies that the patient has dense breast tissue. Dense breast tissue can make it harder to find cancer on a mammogram. Dense breast tissue is also associated with an incr eased risk of breast cancer. This information about the result of the mammogram report was provided to the patient to raise their awareness. Use this report when you speak with the patient about their risks for breast cancer, which includes their family history. At that time, you may recommend additional screening tests (Ultrasoun d or MRI) as these tests may add significant information. A negative radiographic report should not delay biopsy if a dominant or clinically suspicious mass is present. Up to ten percent of cancers are not identified on mammography. A negative report may reinforce clinical impression. Adenosis and dense breasts may obscure an underlying neoplasm. False positive reports average 6 to 10%. Patient will receive a letter notifying them of these results.
== END ==
PROVIDERS: PCP Nurse Practitioner Family; Visit Provider Family Medicine
DX: Z12.31 Encounter for screening mammogram for malignant neoplasm of breast (principal); R92.8 Other abnormal and inconclusive findings on diagnostic imaging of breast
CPT/HCPCS: 76642; 77063; 77067

== ENCOUNTER 2022-09-04 16:55 | Outpatient (CLI) | payer OTHER, SELFPAY ==
[2022-09-04 18:38] LABS: Ferritin 140 ng/mL (8-252)
== END 2022-09-04 16:56 | disposition home or self-care (01) ==
LOC: LBO 17:00
PROVIDERS: PCP Nurse Practitioner Family; Visit Provider Nurse Practitioner
DX: M25.561 Pain in right knee (principal); G47.33 Obstructive sleep apnea (adult) (pediatric); G47.61 Periodic limb movement disorder
CPT/HCPCS: 36415; 82728

== ENCOUNTER 2022-09-15 00:02 | Outpatient (CLI) | payer OTHER, SELFPAY ==
--- NOTE | 2022-09-15 | DI.US_ITS ---
Exam(s) MG MAMMO DIAGNOSTIC UNI US BREAST RT COMPLETE EXAM: MG MAMMO DIAGNOSTIC UNI-RIGHT AND COMPLETE RIGHT BREAST ULTRASOUND CLINICAL HISTORY: reassess abnormal breast finding,N64.59,NODULARITY. TECHNIQUE: Unilateral right breast CC and MLO images were performed as well as an additional spot ma mmographic images were obtained with 3D tomosynthesis technique and utilizing computer aided detectio n (CAD). Also performed complete right breast ultrasound including all 4 quadrants as well the right axilla. COMPARISON: Prior mammograms were reviewed, the most recent being February 2022. Ultrasound of February 2022 was also reviewed. FINDINGS: DIAGNOSTIC RIGHT BREAST MAMMOGRAM: The nodule in the medial-upper aspect of the right breast is still present and persists on spot compr ession view. No new additional right breast mammographic findings. We proceeded with ultrasound. COMPLETE RIGHT BREAST ULTRASOUND: Today's right breast ultrasound reveals a solitary 3 millimeter hemorrhagic microcyst at the 1 o'cloc k position, located 7 cm from the nipple. This corresponds to the prior 6 millimeter microcyst seen at this location. It has decreased in size, further evidence that it is benign. In addition, the other adjacent hemorrhagic microcysts seen on the prior February 2022 study is no jeanne erica seen, further evidence that it was a probable hemorrhagic microcysts. There are no solid lesions seen in all 4 quadrants of the right breast. Scanning of the right axilla is negative for adenopathy. IMPRESSION: Benign findings in the right breast as described above. Appropriate follow-up is to keep this patient on her yearly mammogram schedule, implying that her nex t bilateral mammogram would be in 6 months time, with earlier imaging if a self detected breast galicia e is noted.. The patient was informed of the findings and follow-up recommendations by myself prior to leaving the department today. BI-RADS Category 2 - Benign Findings Breast Density - Category B - Scattered areas of fibroglandular density Breast density Category C or D implies that the patient has dense breast tissue. Dense breast tissue can make it harder to find cancer on a mammogram. Dense breast tissue is also associated with an incr eased risk of breast cancer. This information about the result of the mammogram report was provided to the patient to raise their awareness. Use this report when you speak with the patient about their risks for breast cancer, which includes their family history. At that time, you may recommend additional screening tests (Ultrasoun d or MRI) as these tests may add significant information. A negative radiographic report should not delay biopsy if a dominant or clinically suspicious mass is present. Up to ten percent of cancers are not identified on mammography. A negative report may reinforce clinical impression. Adenosis and dense breasts may obscure an underlying neoplasm. False positive reports average 6 to 10%. Patient will receive a letter notifying them of these results.
== END 2022-09-15 00:22 ==
LOC: DI 00:02
PROVIDERS: PCP Nurse Practitioner Family; Visit Provider Family Medicine
DX: N64.59 Other signs and symptoms in breast (principal)
CPT/HCPCS: 76642; 77061; 77065; G0279

== ENCOUNTER 2022-10-11 02:33 | Outpatient (CLI) | payer OTHER, SELFPAY ==
--- NOTE | 2022-10-11 08:30 | DI.RAD_ITS ---
Exam(s) XR KNEE LT 3V AP,LAT,JORDON EXAM: XR KNEE LT 3V AP,LAT,JORDON CLINICAL HISTORY: knee arthritis,m17.0. TECHNIQUE: 2D digital imaging was performed. Three views. COMPARISON: CR XR KNEE RT 3V AP,LAT,JORDON from 10/11/2022 FINDINGS: BONES: No acute fracture is present. No bony destructive lesion is seen. JOINTS: There is moderate narrowing of the lateral femoral tibial joint and periarticular spurring. Spurring is also noted at the articular aspect of the patella. A small joint effusion is seen. SOFT TISSUE: Normal. IMPRESSION: Degenerative changes of the lateral femoral tibial and patellofemoral joints. DATA REPOSITORY: RADIATION DOSE DELIVERED:
--- NOTE | 2022-10-11 08:30 | DI.RAD_ITS ---
Exam(s) XR KNEE RT 3V AP,LAT,JORDON EXAM: XR KNEE RT 3V AP,LAT,JORDON CLINICAL HISTORY: knee arthritis,m.17.0. TECHNIQUE: 2D digital imaging was performed. Three views. COMPARISON: No exams were available for comparison FINDINGS: BONES: No acute fracture is present. No bony destructive lesion is seen. JOINTS: The knee is normally aligned. No joint effusion is seen. Mild periarticular spurring of the f emoral tibial joints. Severe narrowing of the patellofemoral joint. Small patellar enthesophytes.. SOFT TISSUE: Normal. IMPRESSION: Degenerative changes of the patellofemoral joint. DATA REPOSITORY: RADIATION DOSE DELIVERED:
--- NOTE | 2022-10-11 08:30 | DI.RAD_ITS ---
Exam(s) XR ANKLE RT COMPLETE EXAM: XR ANKLE RT COMPLETE CLINICAL HISTORY: right ankle painm25.571. TECHNIQUE: 2D digital imaging was performed. Three views. COMPARISON: CR XR ANKLE RT COMPLETE from 12/30/2020 FINDINGS: BONES: No acute fracture is present. No bony destructive lesion is seen. Minimal heel spurs. Lucenc y in the medial talar dome as noted on prior exam. JOINTS: The ankle mortise is normally aligned. SOFT TISSUE: Normal. IMPRESSION: Stable appearance of degenerative subarticular cyst versus osteochondral defect of the medial talar d ome. DATA REPOSITORY: RADIATION DOSE DELIVERED:
== END 2022-10-11 02:53 ==
LOC: DI 02:33
PROVIDERS: PCP Nurse Practitioner Family; Visit Provider Nurse Practitioner Family
DX: M17.0 Bilateral primary osteoarthritis of knee (principal); G89.29 Other chronic pain; M25.571 Pain in right ankle and joints of right foot
CPT/HCPCS: 73562; 73610

== ENCOUNTER 2022-10-23 07:35 | Day surgery (SDC) | payer OTHER, SELFPAY ==
--- NOTE | 2022-10-22 14:31 | W.ANESPRE ---
General Info Date of Service Date Performed: 10/23/22 Height: 5 ft 8 in Weight: 110.847 kg Body Mass Index (BMI): 37.1 Surgical Procedure: Operation Date: 10/23/22 09:05 Proposed Procedure Side Surgeon p Colonoscopy Dannie Linder MD Meds Allergies and Home Medications Allergies Allergy/AdvReac Type Severity Reaction Status Date / Time No Known Allergies Allergy Verified 10/20/22 10:10 Home Medication Medication Instructions Recorded ibuprofen 600 mg tablet 600 mg PO TID PRN pain #20 tabs 09/28/18 propranolol 20 mg tablet 20 mg PO BID #180 tabs 06/05/22 Current Visit Medications: Current Medications Generic Name Dose Route Start Last Admin Trade Name Freq PRN Reason Stop Dose Admin Ringer's Solution 1,000 mls @ 80 mls/hr 10/23/22 06:00 IV 10/23/22 23:59 INFUSION CARRINGTON IV Miscellaneous Supplies 1 each 10/23/22 06:00 Iv Access IV 10/23/22 23:59 DIRECTED CARRINGTON Sodium Chloride 0 ml 10/23/22 06:00 Normal Saline Flush 10 Ml Syr IV 10/23/22 23:59 PRN PRN Sodium Chloride 0 ml 10/23/22 06:00 Normal Saline 10 Ml Vial IJ 10/23/22 23:59 DIRECTED PRN Sterile Water 0 ml 10/23/22 06:00 Water,Injection,Sterile 10 Ml Vial IJ 10/23/22 23:59 DIRECTED PRN PFSH Active Problems Active Problems: Problem Status Onset Code Obstructive sleep apnea G47.33 Hyperlipidemia E78.5 Obesity E66.9 Chronic pain of right ankle M25.571, G89.29 Rectal bleeding K62.5 Essential tremor G25.0 Primary osteoarthritis of both knees M17.0 Medical History Medical History Endometriosis Generalized anxiety disorder Left ureteral calculus Major depressive disorder Microscopic hematuria Negative cystoscopy Neurocardiogenic syncope heat, abdominal cramping, blood are triggers Recurrent cystitis Tubular adenoma of colon On 2012 colonoscopy Medical History Comments:: Get pt. up slowly (vasovagal episodes-hasn't happened for a while per pt. ) Surgical History Surgical History (Updated 10/23/22 @ 08:09 by Dasha Mckeon RN) H/O colonoscopy H/O flexible sigmoidoscopy (2021) History of total hysterectomy with bilateral salpingo-oophorectomy (BSO) (~1998) S/P cholecystectomy Tobacco Smoking/Tobacco Use Status: Never Passive smoking exposure: No Second hand exposure: Yes Alcohol Alcohol Intake: current Alcohol intake frequency: a few times a month Alcohol type: beer, wine and hard liquor Substance Use Substance use: Never Substance use type: does not use Prental History History 0 Para Hx # Term Pregnancies Multiple births Hx # Pregnancies Ectopic pregnancies AB induced Hx Number of Living Children AB spontaneous Vital Signs and Lab Results Vital Signs Most Recent Vital Signs in EMR: Temp Pulse Resp BP Pulse Ox 36.3 C L 59 L 16 123/75 94 10/23/22 07:50 10/23/22 07:50 10/23/22 07:50 10/23/22 07:50 10/23/22 07:50 Lab Results Blood Type / Crossmatch: No Data to Display Complete Blood Count: No Data to Display Complete Metabolic Panel: No Data to Display Liver Function Panel: No Data to Display Coagulation Panel: No Data to Display Cardiac Panel: No Data to Display Arterial Blood Gas: No Data to Display Venous Blood Gas: No Data to Display Pancreas Panel: No Data to Display Thyroid Panel: No Data to Display Infectious Disease: No Data to Display Blood Cultures: No Data to Display Toxicology Panel: No Data to Display Anesthesia Assessment and Plan Anesthesia History Personal History: No History of Anesthesia Complications Family History: No Family History of Anesthesia Complications Exercise Tolerance Exercise Tolerance: Metabolic Equivalents>4 Cardiac & Pulmonary Exam Cardiac Exam: Normal S1/S2 Heart Sounds Pulmonary Exam: Clear Bilateral Breath Sounds Implantable Cardiac Device Does patient have a Pacemaker or an ICD?: No Airway Exam Known Difficult Airway: No Mallampati Class: 2 Mouth Opening: Normal (> 3cm) Thyromental Distance: Greater than 3 cm Neck Range of Motion: Full ROM Neck Circumference: Normal Teeth Condition: Normal Dentition ASA Classification ASA Score: ASA 2 Emergency Case?: No NPO Status NPO Status: NPO Clears >2 hours, Solids >8 hours Anesthesia Plan Resuscitation Status: Full Code Anesthesia Technique: MAC Anesthesia Airway Planned: Natural Airway Monitors Used: Standard Monitors Preoperative Comments:: 62 yo female for colo. sig PMHx: LISANDRA, HTN, tremor, chronic pain.
--- NOTE | 2022-10-22 21:42 | W.PM.DSUDISC ---
Date of service: 10/23/22 Time of Service: 09:58 Discharge Plan Disposition Patient Disposition: Home Condition: Good Discharge Details Reason For Visit: Screening colonoscopy Attending Provider: Dannie Linder Primary Care Provider: Natalie Sanchez Home Meds and New Rx's Prescriptions: Continued propranolol 20 mg tablet 20 mg PO BID Qty: 180 3RF ibuprofen 600 mg tablet 600 mg PO TID PRN (Reason: pain) Qty: 20 0RF Discontinued polyethylene glycol 3350 17 gram/dose powder 238 g PO ONCE Qty: 238 0RF Rx Instructions: take per colonoscopy instructions bisacodyl [Dulcolax (bisacodyl)] 5 mg tablet,delayed release (DR/EC) 5 mg PO ONCE Qty: 4 0RF Rx Instructions: take per colonoscopy instructions Discharge Instructions Additional Instructions: Bia, we were able to complete the colonoscopy today without any difficulty. The quality of your preparation was excellent. I did not see any abnormalities. I saw no polyps or tumors. In that regards, this is a negative screening colonoscopy. Similar to your last endoscopy, I did not see any signs of anything that would cause bleeding. Based on the intermittent nature of it, the most common diagnosis would be internal hemorrhoids. Generally, patients who have bleeding symptoms have fairly obvious hemorrhoids during the colonoscopy. However, they can regress from time to time and in that regards its not surprising. Certainly, if you have any exacerbation of the symptoms, I be happy to see you at any time. Otherwise, the screening colonoscopy is negative, and you should consider another routine one in 5 to 10 years based on your past history of polyps. 1. If tolerated, consume a soft, low fiber diet for 1-2 days. 2[address] Do not drive, drink alcohol, operate machinery, make critical decisions, or do activities that require coordination or balance for 24 hours. 3. Because air was put into your colon during the procedure, expelling air from your rectum (passing gas or farting) is normal. 4. You may not have a bowel movement for 1-3 days because of the colonoscopy prep. This is normal. 5. Go directly to the emergency room if you notice any of the following: Develop chills (warm to touch), or if you have a thermometer and your temperature is above 101 Difficulty breathing or difficultly swallowing Persistent vomiting Severe abdominal pain, other than gas cramps Severe chest pain Black, tarry stools Any bleeding ? exceeding one tablespoon 6. Call your physician if the site where your intravenous was started becomes red, swollen, painful, and warm to touch. 7. Your physician has reviewed your pre-procedure medications. Please continue to take those medications as previously ordered. You will be given specific information/education regarding any changes to your medications before leaving. Activity:: Activity as Tolerated Diet:: As Tolerated Discharge Orders Discharge Orders: Discharge Order (Routine); Ordered 10/22/22 Ordered By: Dannie Linder DS: Diagnosis Discharge Diagnosis (1) Screening for colon cancer: Status: Acute Asessment and Plan: Negative screening colonoscopy
--- NOTE | 2022-10-22 21:44 | W.COLOREPORT ---
Date of service: 10/23/22 Time of Service: 10:02 Colonoscopy Report Date of procedure: 10/23/22 Pre-op diagnosis general: Screening colonoscopy Post-op diagnosis procedure note: other (Negative screening colonoscopy) Procedure: Colonoscopy Surgeon: Dannie Linder Anesthesia Type: General:No Airway Estimated blood loss (mL): 0 Pathology: none sent Complications: None Disposition: same day Indications: Bia is a 62 year old woman who is here for a screening colonoscopy Prep: Miralax/Dulcolax Procedure Start Time: 09:31 Procedure End Time: 09:50 Retraction Time: 14 Findings: Negative screening colonoscopy Procedure Description: After the induction of monitored anesthetic care, and with the patient in left lateral decubitus position, I began by performing an external anorectal exam.? Perineum and skin were normal, as was the anal verge.? There was no evidence of external hemorrhoids.? Next, I performed a digital rectal exam.? I did not appreciate any abnormal findings.? Next, I advanced a colonoscope into the rectal vault.? I performed retroflexion.? This appeared normal to me.? Using insufflation, I then advanced the colonoscope beyond the rectal folds and into the sigmoid colon before advancing towards the cecum.? The quality of the prep was excellent.? The scope was noted to be in the cecum by identification of the ileocecal valve and appendiceal orifice.? I then began withdrawing the colonoscope using repeated irrigation as necessary for full evaluation of the colonic mucosa. ?Once the scope was withdrawn to the level of the rectum, great care was taken to examine portions of the rectal folds.? Along the length of the colonoscopy, I did not see any evidence of any tumors, polyps, diverticulosis, or pathologic hemorrhoids. Finally, the scope was withdrawn and the patient was brought to the same-day surgery recovery unit as the anesthetic wore off. ?The findings and instructions were shared with the patient prior to discharge.
[2022-10-23 07:50] VITALS: BP 123/75; PULSE 59; RESP 16; TEMP 36.3; O2SAT 94
[2022-10-23] MEDS: Lactated Ringers 1,000 ML 80 ML IV (08:30)
[2022-10-23 09:12] VITALS: BMI 37.1
[2022-10-23 09:53] VITALS: BP 112/60; PULSE 60; RESP 17; TEMP 36; O2SAT 95
--- NOTE | 2022-10-23 09:58 | W.ANESPOSTOP ---
Postoperative Evaluation Date, Time and Location Date Performed: 10/23/22 Time Performed: 09:58 Patient Location: Day Surgery Unit Vital Signs Most Recent Imported Vital Signs: Most Recent Vital Signs Temp Pulse Resp BP Pulse Ox 36.0 C L 60 17 112/60 95 10/23/22 09:53 10/23/22 09:53 10/23/22 09:53 10/23/22 09:53 10/23/22 09:53 Pain Score Most Recent Pain Score: Most Recent Pain Score Pain Level 0 10/23/22 09:53 Assessment Mental Status: Awake (Alert & Oriented to Patient Baseline) Airway and Respiratory Function: Patent airway with normal (patient baseline) respiratory exam Cardiovascular Function: Hemodynamically Stable Hydration Status: Adequately Hydrated Nausea & Vomiting: No Nausea or Vomiting Pain: Pt. Denies Any Pain Peripheral Nerve Block: Patient did not receive a nerve block
[2022-10-23 10:23] VITALS: BP 109/77; PULSE 59; RESP 17; TEMP 36.5; O2SAT 96
== END 2022-10-23 10:32 | disposition home or self-care (01) ==
PROVIDERS: PCP Nurse Practitioner Family; Visit Provider Surgery
PROC: 0DJD8ZZ Inspection of Lower Intestinal Tract, Via Natural or Artificial Opening Endoscopic (ICD-10-PCS; CPT 45378; principal; 2022-10-23 09:00)
DX: Z12.11 Encounter for screening for malignant neoplasm of colon (principal); G47.33 Obstructive sleep apnea (adult) (pediatric); E66.9 Obesity, unspecified; G25.0 Essential tremor
CPT/HCPCS: 45378

== ENCOUNTER 2022-12-01 00:11 | Outpatient (CLI) | payer OTHER, SELFPAY ==
--- NOTE | 2022-12-01 13:42 | DI.DEXA_ITS ---
Exam(s) XR DEXA BONE DENSITY W/WO MICHELLE EXAM: XR DEXA BONE DENSITY W/WO MICHELLE CLINICAL HISTORY: screening for osteoporosis in postmenopausal woman,z78.0 TECHNIQUE: HoloSNTMNT Horizon C densitometer analysis of left hip, lumbar spine and left forearm. Lat eral survey image of the thoracic and lumbar spine. COMPARISON: No exams were available for comparison FINDINGS: Lateral view of the thoracic and lumbar spine shows no evidence of compression fractures. Bone mineral density measurements of the lumbar spine correspond to a total T-score of 0.8, in the n ormal range. Bone mineral density measurements of the left hip correspond to a total T-score of 0.5. The femoral neck T-score is 0.1, in the normal range.. Theleft forearm bone mineral density measurements correspond to a T-score of the distal 3rd of 0.4, in the normal range.. IMPRESSION: Normal bone mineral density.
== END 2022-12-01 00:31 ==
LOC: DI 00:12
PROVIDERS: PCP Nurse Practitioner Family; Visit Provider Nurse Practitioner Family
DX: Z78.0 Asymptomatic menopausal state (principal); Z13.820 Encounter for screening for osteoporosis
CPT/HCPCS: 77080

== ENCOUNTER → 2023-03-16 00:39 | Outpatient (CLI) | payer OTHER, SELFPAY ==
--- NOTE | 2023-03-16 08:00 | DI.MAMMO_ITS ---
Exam(s) MAMMO SCREENING EXAM: MAMMO SCREENING CLINICAL HISTORY: screening,Z12.39 TECHNIQUE: Mammograms were interpreted according to the usual protocol including computer analysis w [employer] CAD system, tomosynthesis and C-view imaging. COMPARISON: 2013 through 2022 FINDINGS: The breasts are composed of scattered fibroglandular densities, Breast Density category B. No suspicious masses or suspicious microcalcifications are seen. No skin thickening or abnormal axillary lymph nodes are seen. There has been no significant change from prior exams. IMPRESSION: BI-RADS Category 1, Negative mammogram Yearly screening mammography is recommended. Breast Density - Category B, scattered fibroglandular densities. A negative radiographic report should not delay biopsy if a dominant or clinically suspicious mass is present. Up to ten percent of cancers are not identified on mammography. A negative report may reinforce clinical impression. Adenosis and dense breasts may obscure an underlying neoplasm. False positive reports average 6 to 10%. Patient will receive a letter notifying them of these results.
== END ==
PROVIDERS: PCP Nurse Practitioner Family; Visit Provider Nurse Practitioner Family
DX: Z12.31 Encounter for screening mammogram for malignant neoplasm of breast (principal)
CPT/HCPCS: 77063; 77067

== ENCOUNTER 2023-09-12 02:05 | Emergency (ER) | payer OTHER, SELFPAY ==
[2023-09-12 02:07] VITALS: BP 152/76; PULSE 64; RESP 16; TEMP 36.5; O2SAT 98
--- NOTE | 2023-09-12 02:09 | ED.GENADUL_ITS ---
Discharge Plan Disposition Patient Disposition: Home Condition: Good Discharge Details Clinical Impression: Calculus of proximal left ureter Primary Care Provider: Natalie Sanchez ED Provider: Neeraj Loera and New Rx's Prescriptions: New Oxycodone, 4 Tabs/Btl [Roxicodone, 4 Tabs/Btl] 5 mg PO BID PRN PRNQty: 4 0RF Continued propranolol 20 mg tablet 20 mg PO BID Qty: 180 3RF cholecalciferol (vitamin D3) 25 mcg (1,000 unit) capsule 25 mcg PO DAILY ibuprofen 600 mg tablet 600 mg PO TID PRN (Reason: pain) Qty: 20 0RF Discharge Instructions Instructions: Opioid Safety (ED), Ureteral Stones (ED) Additional Instructions: You were seen for left-sided flank pain and found to have a 5 mm proximal stone causing obstruction. Your laboratory studies and urinalysis are reassuring. We will send you home with 4 oxycodone tablets which you may take for severe pain. Should alternate acetaminophen with ibuprofen for mild to moderate pain. Contact your urologist this morning for follow-up. Return to the ED if you develop fever, uncontrolled pain, persistent vomiting, other concerns. HPI General Mode of arrival: ambulatory . Date/Time Provider Initiated Documentation: 09/12/23 02:08 . Limitations to Documentation: no limitations . Information obtained by: patient . HPI Narrative: Patient presents to ED with sudden onset of left flank pain around midnight. She has had nausea and dry heaves but no actual vomiting. Pain is similar to previous kidney stones that she has had. Denies any fever or urinary symptoms. Denies any abdominal pain or radiation into the groin. Denies any chest pain, cough, shortness of breath. Related Data Home Medications Medication Instructions Recorded Confirmed ibuprofen 600 mg tablet 600 mg PO TID PRN pain #20 tabs 09/28/09/12/23 cholecalciferol (vitamin D3) 25 25 mcg PO DAILY 03/30/23 09/12/23 mcg (1,000 unit) capsule propranolol 20 mg tablet 20 mg PO BID #180 tabs 06/04/23 09/12/23 oxyCODONE, 4 tabs/btl [Roxicodone, 5 mg PO BID PRN PRN #4 tab-caps 09/12/23 4 tabs/btl] Previous Rx's Medication Instructions Recorded ibuprofen 600 mg tablet 600 mg PO TID PRN pain #20 tabs 09/28/18 propranolol 20 mg tablet 20 mg PO BID #180 tabs 06/04/23 oxyCODONE, 4 tabs/btl [Roxicodone, 5 mg PO BID PRN PRN #4 tab-caps 09/12/23 4 tabs/btl] Allergies Allergy/AdvReac Type Severity Reaction Status Date / Time No Known Allergies Allergy Verified 09/12/23 03:23 General MAK: 3 Review of Systems Narrative: Per HPI Exam Narrative Exam Narrative: Const: Obese female in NAD. VS per triage. HEENT: NC/AT. Normal facial exam. Eyes: Normal conjunctiva and sclera. Neck: Supple. Trachea midline. Lungs: Normal respiratory effort. GI: Soft. NT/ND. No guarding or rebound. Neuro: A+O x 3. Normal speech, mentation, gait. Cranial nerves II - XII grossly intact. No gross motor or sensory deficit. Medical Decision Making Patient presenting with acute onset of left flank pain with nausea and dry heaves consistent with previous renal colic that she has had. Abdomen itself is benign. Will place IV, give fluids, ketorolac, ondansetron and send labs. Stone study CT ordered. Patient's laboratory studies with normal white count, kidney function. Urinalysis with blood but no evidence of infection. CT scan per preliminary radiology read with a 5 mm proximal ureteral stone with evidence of obstruction and significant hydronephrosis. Patient required a dose of morphine after the ketorolac and ondansetron. Now more comfortable. Would like to try to go home and call her urologist in [place] for close follow-up. Will discharge with 4 oxycodone tablets for pain control until she is able to follow-up. Return precautions discussed. Imaging Data Radiologic Study: Imaging: CT Scan Radiologist's impression: IMPRESSION: 1. Obstructing left renal stone just beyond the left ureterovesicular junction with upstream left pelvic dilation and moderate to severe left hydronephrosis. Left kidney is encouraged and edematous with surrounding inflammatory change suggesting possible underlying infection. Correlate clinically. 2. Additional nonacute findings as above. Dictated and Authenticated by: Philipp Mazariegos MD. Lab Data Lab results reviewed: Yes I reviewed the patient's lab results. Quality:SDOH Health Related Social Needs: 2 No Data to Display PFSH All Active Problems (Updated 09/12/23 @ 04:55 by Neeraj Loera MD) Calculus of proximal left ureter (Acute) Microscopic hematuria (Acute) Negative cystoscopy RLS (restless legs syndrome) (Acute) Normal colposcopy (Acute ~10/23/22) Obesity (Chronic) Chronic pain of right ankle (Chronic) Rectal bleeding (Chronic) Primary osteoarthritis of both knees (Chronic) Screening for colon cancer (Acute) Medical History Obstructive sleep apnea Mild, position changes Essential tremor Hyperlipidemia Generalized anxiety disorder Major depressive disorder Recurrent cystitis Neurocardiogenic syncope heat, abdominal cramping, blood are triggers Tubular adenoma of colon (~12/23/12) On 2012 colonoscopy Endometriosis Surgical History H/O colonoscopy (~10/23/22) H/O flexible sigmoidoscopy (2021) S/P cholecystectomy History of total hysterectomy with bilateral salpingo-oophorectomy (BSO) (~1998) Family History Mother , 66 Ruptured cerebral aneurysm Father , 88 Diabetes Depression Hypertension Dementia Sister Diabetes Breast cancer 40s Sister No problems noted. Brother No problems noted. Brother No problems noted. Brother Parkinson disease Brother Diabetes Paternal Grandfather Stroke Paternal Grandmother , 70 Depression Maternal Grandfather No problems noted. Maternal Grandmother Liver cancer Social History Smoking/Tobacco Use Status: Never Second Hand Exposure: Yes Smoking risk assessment performed?: Yes Alcohol Intake: current Alcohol Intake frequency: a few times a week Alcohol type: beer, wine and hard liquor Drug use: Never Substance use type: does not use Caregiver/Support person: No Household members: spouse Housing: house Communication Needs: Corrective Lenses Do you need help understanding health information?: Rarely Pets and animals: Yes Pets and animals: cat(s) Sexually active: Yes Do you think of yourself as: lesbian/purvis/homosexual Current gender identity: female What is your relationship status?: How often do you talk on the phone with friends or family?: three or more times per week How often do you get together with friends or relatives?: once per week How often do you attend anglican or presybeterian services?: 4 or more times per year Do you belong to any clubs or organized social groups?: no Panel score (0-1 are the most socially isolated patients): 3 What type of physical activity do you participate in: walking, swimming and other Details: Gardening Duration: 45-60 minutes/day Frequency: 3-4 times per week Willa/Mosque: Christian Special willa needs: No Agree to transfusion: No Do you feel safe at home: Yes Do you feel safe in your relationship?: Yes Additional Social history: unable to assess privately-10/23/22 Female Reproductive History Menstrual Menopause type: surgical History History 0 Para Hx # Term Pregnancies Multiple births Hx # Pregnancies Ectopic pregnancies AB induced Hx Number of Living Children AB spontaneous
--- NOTE | 2023-09-12 02:15 | DI.CT_ITS ---
Exam(s) CT RENAL COLIC WO EXAM: CT RENAL COLIC WO CLINICAL HISTORY: left flank pain. TECHNIQUE: Imaging Protocol: Axial computed tomography images with coronal and sagittal reformatted images were created and reviewed CONTRAST MATERIAL: Intravenous: none Oral: None COMPARISON: CT CT RENAL COLIC WO from 07/24/2020 FINDINGS: VISUALIZED LUNG BASES: No nodules nor pleural effusions evident. ABDOMEN: There is no ascites. LIVER: There are no obvious focal hepatic lesions evident of this noninfused study. GALLBLADDER/BILIARY: The gallbladder is again noted be surgically absent. CBD is not dilated. PANCREAS: No evidence of pancreatic mass nor dilatation of the pancreatic duct. SPLEEN: Spleen is not enlarged. No obvious intrasplenic lesions. ADRENALS: Renal gland unremarkable. There is a hypodense nodule in the left adrenal gland again note d, unchanged from 2018 and 2020 and therefore most probably an adenoma. This measures approximately 1.8 by 1.3 cm. KIDNEYS:There are cysts in both kidneys. The largest is in the inferior pole of the left kidney and measures 3.8 cm, larger than previous. Another cyst in the opposite-right kidney is again noted. Th ere are tiny calculi in both kidneys,. These measure less than 2 mm. There is mild left-sided hydro nephrosis none which is again appearing to be related to a 4-5 millimeter calculus in the upper left ureter at the UPJ level. The left ureter below this level is not dilated and there are no additional calculi in the lower left ureter nor in the urinary bladder.. ABDOMINAL AORTA: Abdominal aorta is not enlarged. LYMPH NODES: There is no retroperitoneal nor paraaortic adenopathy. ABDOMINAL WALL: Small midline umbilical fat only containing hernia. GI: There is no evidence of bowel obstruction, free air, nor abscess. PELVIS: LYMPH NODES: There is no intrapelvic nor inguinal adenopathy. GI: No evidence of appendicitis.No evidence of sigmoid diverticulitis. URINARY BLADDER: No calculi nor obvious masses evident REPRODUCTIVE: Uterus surgically absent. No abscess free fluid in the pelvis. OSSEOUS: No significant osseous lesions. No fractures. IMPRESSION: 1. There is an obstructing 4-5 millimeter calculus in the upper left ureter just beyond the UPJ level with moderate ipsilateral hydronephrosis. There is some surrounding streaking around the left kidne y. Difficult to determine presence of pyelonephritis without IV contrast but suspicious for this bec ause this has been a chronically present calculus.. Recommend checking urine for infection 2. There are cysts again noted in each kidney and there are also tiny punctate calculi noted in the k idneys. 3. Stable left adrenal hypodense nodule which is probably an adenoma. Right adrenal unremarkable Previous hysterectomy and cholecystectomy again evident. RADIATION DOSE DELIVERED: 1,221.07mGy.cm Total DLP DATA REPOSITORY: All CT scans at this facility are submitted to the National Radiology Data Registry (NRDR) Dose Index Registry (DIR) with the [employer] (ACR). RADIATION OPTIMIZATION: All CT scans at this facility use at least one of these dose optimization te chniques: automated exposure control; mA and/or kV adjustment per patient size (includes targeted exa ms where dose is matched to clinical indication); or iterative reconstruction.
[2023-09-12] MEDS: Ondansetron 4 MG/2 ML VIAL IVP (02:24)
[2023-09-12] MEDS: Ketorolac 30 MG/ML VIAL 15 MG IVP (02:25)
[2023-09-12 02:27] LABS: Abs Immature Grans 0.03 10^3/uL (0.0-0.06); Absolute Basophil Count 0.07 10^3/uL (0.0-0.2); Absolute Eosinophil Count 0.32 10^3/uL (0.0-0.7); Absolute Lymphocyte Count 2.54 10^3/uL (1.2-3.4); Absolute Monocyte Count 0.77 10^3/uL (0.1-0.8); Absolute Neutrophil Count 6.55 10^3/uL (1.2-6.7); Basophils % 0.7 %; Eosinophils % 3.1 %; HCT 37.5 % (36.0-46.0); HGB 12.4 g/dL (11.2-15.7); Immature Grans % 0.3 %; Lymphocytes % 24.7 %; MCH 28.8 pg (27.0-33.0); MCHC 33.1 % (32.0-36.0); MCV 87 fL (80-95); MPV 11.2 fL (8.0-11.0); Monocytes % 7.5 %; Neutrophils % 63.7 %; Platelet Count 218 10^3/uL (130-400); RDW 14.6 % (11.7-14.6); RDW-SD 46.7 fL; WBC 10.28 10^3/uL (4.4-10.8)
[2023-09-12 02:35] LABS: Anion Gap 9.5 mmol/L (3-11); BUN 22 mg/dL (7-18); CO2 26.5 mmol/L (21.0-32.0); Calcium 8.9 mg/dL (8.5-10.1); Chloride 106 mmol/L (98-107); Estimated GFR 64.49 (mL/min/1.73m2); Glucose 140 mg/dL (74-106); Potassium 3.9 mmol/L (3.5-5.1); Sodium 142 mmol/L (136-145)
--- NOTE | 2023-09-12 04:04 | DI.VRAD_ITS ---
PROCEDURE INFORMATION: Exam: CT Abdomen And Pelvis Without Contrast Exam date and time: 09/12/2023 2:33 AM Age: 62 years old Clinical indication: Prior surgery; Surgery date: 6+ months; Surgery type: Cholecystectomy, hysterectomy, patient HX: L flank pain; Additional info: HX of kidney stones TECHNIQUE: Imaging protocol: Computed tomography of the abdomen and pelvis without contrast. Radiation optimization: All CT scans at this facility use at least one of these dose optimization techniques: automated exposure control; mA and/or kV adjustment per patient size (includes targeted exams where dose is matched to clinical indication); or iterative reconstruction. COMPARISON: CT renal colic wo 09/28/2018 3:51 AM FINDINGS: Lungs: Bibasilar atelectasis. Heart: Base of heart is unremarkable as visualized. Liver: Normal. No mass. Gallbladder and bile ducts: Status post cholecystectomy. Pancreas: Normal. No ductal dilation. Spleen: Normal. No splenomegaly. Adrenal glands: Lipid rich adenoma of the left adrenal gland, stable. Kidneys and ureters: Just distal to the left ureterovesicular junction there is a calcified 5 mm stone. The stone results in left pelvic dilation as well as moderate to severe left hydronephrosis. The left kidney appears edematous with mild surrounding inflammatory change. Multiple benign attenuating renal cysts are noted. Stomach and bowel: Unremarkable. No obstruction. No mucosal thickening. Appendix: No evidence of appendicitis. Intraperitoneal space: Unremarkable. No free air. No significant fluid collection. Vasculature: Multiple pelvic phleboliths are noted. Lymph nodes: Unremarkable. No enlarged lymph nodes. Urinary bladder: Unremarkable as visualized. Reproductive: Unremarkable as visualized. Bones/joints: Mild scattered degenerative change of the visualized osseous structures. Soft tissues: Unremarkable. IMPRESSION: 1. Obstructing left renal stone just beyond the left ureterovesicular junction with upstream left pelvic dilation and moderate to severe left hydronephrosis. Left kidney is encouraged and edematous with surrounding inflammatory change suggesting possible underlying infection. Correlate clinically. 2. Additional nonacute findings as above. Dictated and Authenticated by: Philipp Mazariegos MD. Ordering:LANDY Pickard MD
[2023-09-12] MEDS: MORPHine 4 MG/ML SYR IVP (04:07)
[2023-09-12] MEDS: Tamsulosin 0.4 MG CAPCR PO (04:07)
[2023-09-12 04:29] LABS: Bilirubin Negative (Negative); Blood Large (Negative); Clarity Sl Cloudy (Clear); Glucose Negative (Negative); Ketones Negative (Negative); Leukocyte Esterase Negative (Negative); Nitrite Negative (Negative); Specific Gravity 1.025 (1.005-1.025); Urobilinogen 0.2 mg/dL (Up to 0.2)
[2023-09-12 04:43] LABS: Epithelial Cells Moderate HPF (Negative); RBC >50 HPF (0-2); WBC 0-2 HPF (0-5)
[2023-09-12 04:44] LABS: Bacteria Few HPF (Negative); C & S Indicated? No; Crystals Negative HPF (Negative); Mucus Negative (Negative)
[2023-09-12 05:04] VITALS: BP 142/72; PULSE 72; RESP 18; O2SAT 99
== END 2023-09-12 05:05 | disposition home or self-care (01) ==
PROVIDERS: Emergency Provider Emergency Medicine; PCP Nurse Practitioner Family
DX: N20.0 Calculus of kidney (principal); R10.32 Left lower quadrant pain; Z87.442 Personal history of urinary calculi
CPT/HCPCS: 36415; 80048; 96374; 96375; 99284; 74176; 81003; 81015; 85025; 99283; J1885; J2270; J2405

== ENCOUNTER 2023-10-15 04:47 | Outpatient (CLI) | payer OTHER, SELFPAY ==
[2023-10-15 07:31] LABS: Hemoglobin A1C 5.6 % (<5.7)
[2023-10-15 07:54] LABS: Calculated LDL 119 mg/dL (<100); Cholesterol 192 mg/dL (<200); HDL Cholesterol 43 mg/dL (40-60); TSH (W/Ref FT4) 2.28 uIU/mL (0.36-3.74); Triglyceride 154 mg/dL (<150)
[2023-10-15 18:53] LABS: HIV-1/2 Ag & Ab Screen Negative (Negative)
[2023-10-15 19:21] LABS: Hepatitis C Ab w Rflx HCV PCR Negative (Negative)
== END 2023-10-15 04:48 | disposition home or self-care (01) ==
LOC: LBO 04:47
PROVIDERS: PCP Nurse Practitioner Family; Visit Provider Nurse Practitioner Family
DX: Z00.00 Encounter for general adult medical examination without abnormal findings (principal); Z11.59 Encounter for screening for other viral diseases
CPT/HCPCS: 36415; 80061; 86803; 87389; 83036; 84443

== ENCOUNTER 2023-12-16 06:31 | Observation (INO) | payer OTHER, SELFPAY ==
[2023-12-16] VITALS (47 sets, daily range): BP systolic 108–160; BP diastolic 56–95; PULSE 50–67; RESP 10–27; TEMP 35.9–36.7; O2SAT 95–100
--- NOTE | 2023-12-16 06:45 | DI.CT_ITS ---
Exam(s) CT HEAD WO EXAM: CT HEAD WO CLINICAL HISTORY: dizzy. TECHNIQUE: Imaging Protocol: Axial computed tomography images with coronal and sagittal reformatted images were created and reviewed COMPARISON: No exams were available for comparison FINDINGS: Ventricles and Extra axial spaces: Normal in size and morphology for the patient's age. Hemorrhage: None. Cerebral parenchyma: No evidence of acute infarct or mass. Midline shift: None. Brainstem/Cerebellum: Normal. Calvarium: Normal. Visualized Paranasal sinuses:Minimal maxillary sinus mucosal thickening. Mastoids: Clear. Soft Tissues: Unremarkable. ORBITS: Unremarkable. PITUITARY: Not enlarged. IMPRESSION: No acute intracranial process. RADIATION DOSE DELIVERED: Total DLP DATA REPOSITORY: All CT scans at this facility are submitted to the National Radiology Data Registry (NRDR) Dose Index Registry (DIR) with the [employer] (ACR). RADIATION OPTIMIZATION: All CT scans at this facility use at least one of these dose optimization te chniques: automated exposure control; mA and/or kV adjustment per patient size (includes targeted exa ms where dose is matched to clinical indication); or iterative reconstruction.
--- NOTE | 2023-12-16 06:45 | RT.EKG_ITS ---
APPROVED REPORT Exam: Resting ECG Reason for Exam: dizziness Patient Location: E HR:49 bpm ECG Measurements Heart Rate 49 AXIS MT 213 P 43 QRSd 95 QRS 4 QT 480 T 31 QTc 435 Conclusion Sinus bradycardia non specific t wave changes no stemi no priors
--- NOTE | 2023-12-16 07:03 | W.ED.GENAD ---
Discharge Plan Disposition Patient Disposition: Admit to [facility] Condition: Stable Discharge Details Chief Complaint: Dizzy/Sync Clinical Impression: Dizziness Admit Date/Time: 12/16/23 11:58 Admit Provider: Gennaro Lambert Attending Provider: Gennaro Lambert Primary Care Provider: Natalie Sanchez ED Provider: Moira Akers HPI General Date/Time Provider Initiated Documentation: 12/16/23 06:50. Limitations to Documentation: no limitations. Information obtained by: patient. HPI Narrative: 63-year-old female with past medical history including LISANDRA, neuro genic syncope presents for evaluation of dizziness. She reports onset of dizziness 2 days ago when leaving work. It was mild at that time. Not associated with vomiting. Reports that the next day she was doing some work around the house and had significant dizziness. It was not associated with any ear ringing. She reports that she felt very unstable walking. She thought she might be overheated, but the dizziness did not improve with rest. She states that she is not having double vision or blurry vision, but just having difficulty focusing on objects. Is requiring assistance to walk. Has had multiple episodes of vomiting. Reports that she is having some posterior head pressure, but no headache., Denies any prior history of vertigo. Denies any recent viral illness, Ear fullness or hearing change. Related Data Home Medications ?Medication ?Instructions ?Recorded ?Confirmed ibuprofen 600 mg tablet 600 mg PO TID PRN pain #20 tabs 19 12/16/23 cholecalciferol (vitamin D3) 25 25 mcg PO DAILY 03/30/23 12/16/23 mcg (1,000 unit) capsule propranolol 20 mg tablet 20 mg PO BID #180 tabs 06/04/23 12/16/23 Previous Rx's ?Medication ?Instructions ?Recorded ibuprofen 600 mg tablet 600 mg PO TID PRN pain #20 tabs 09/28/18 propranolol 20 mg tablet 20 mg PO BID #180 tabs 06/04/23 Allergies Allergy/AdvReac Type Severity Reaction Status Date / Time No Known Allergies Allergy Verified 12/16/23 06:43 General Stated Complaint: Dizzy/Sync MAK: 3 Exam Narrative Exam Narrative: Review of Systems: All systems reviewed & are unremarkable except as noted in HPI and below Well-developed, no acute distress NCAT PERRL, normal conjunctiva Horizontal nystagmus, increased dizziness when looking to the right, 2 beats of vertical nystagmus, associated with increased dizziness RRR, no murmur Unlabored respiratory effort, clear bilaterally Nondistended abdomen , soft nontender Extremities w/o deformity, no cyanosis, no edema No rashes or lesions. no focal neurologic deficits, no facial asymmetry or speech deficits. Nystagmus as noted above. No dysmetria, normal finger-nose and normal heel guerrero, normal strength and sensation throughout Appropriate mood and affect Course Vital Signs Vital signs: Vital Signs Temperature 36.7 C 12/16/23 06:36 Pulse 56 L 12/16/23 06:36 Respiratory Rate 14 12/16/23 06:36 Blood Pressure 129/95 H 12/16/23 06:36 Pulse Oximetry 98 12/16/23 06:36 Temperature 36.7 C 12/16/23 06:36 Temperature Source Oral 12/16/23 06:36 Pulse 56 L 12/16/23 06:36 Respiratory Rate 14 12/16/23 06:36 Respiratory Effort Normal 12/16/23 06:44 Respiratory Depth Normal 12/16/23 06:44 Respiratory Pattern Normal 12/16/23 06:44 Blood Pressure 129/95 H 12/16/23 06:36 Blood Pressure Position Sitting 12/16/23 06:36 Pulse Oximetry 98 12/16/23 06:36 Oxygen Delivery Method Room Air 12/16/23 06:36 Oxygen Flow Rate 0 12/16/23 06:36 Pain Level 0 12/16/23 06:36 Medical Decision Making Emergent evaluation of dizziness. Not associated with acute onset headache that would be concerning for subarachnoid hemorrhage, however patient is having significant symptoms, posterior headache and vertical nystagmus. These are concerning for possible central etiology of her dizziness. She has no prior history of vertigo. Plan for labs, fluid resuscitation, antiemetics MRI unavailable at this time, but will get CT imaging of the brain to evaluate for possible CVA.. 0946 Improving symptoms with valium. EKG sinus bradycardia 49, no STEMI. Patient does take propranolol daily due to tremor. 1040 no dizziness with laying flat, but slight dizziness with sitting up. Persistent dizziness despite treatment. Given her gait ataxia, I am concerned about safety with ambulation at home. Given the persistence of symptoms and concern for possible central etiology though outside of the stroke window, I do feel the patient would benefit from hospitalization and MRI. Discussed with the hospitalist and the patient will be admitted to their service for further management. Medical Records Medical records reviewed: Yes I reviewed the patient's medical records. Lab Data Lab results reviewed: Yes I reviewed the patient's lab results. Quality:SDOH Health Related Social Needs: No Data to Display PFSH All Active Problems (Updated 12/16/23 @ 12:48 by Moira Akers MD) Dizziness (Acute) Obstructive sleep apnea (Chronic) Mild, position changes Essential tremor (Chronic) Hyperlipidemia (Chronic) Recurrent kidney stones (Chronic) RLS (restless legs syndrome) (Chronic) Chronic pain of right ankle (Chronic) Primary osteoarthritis of both knees (Chronic) Obesity (BMI 30-39.9) (Chronic) Medical History Generalized anxiety disorder Major depressive disorder Recurrent cystitis Neurocardiogenic syncope heat, abdominal cramping, blood are triggers Tubular adenoma of colon (~12/23/12) On 2012 colonoscopy Endometriosis Surgical History H/O colonoscopy (~10/23/22) H/O flexible sigmoidoscopy (2021) S/P cholecystectomy History of total hysterectomy with bilateral salpingo-oophorectomy (BSO) (~1998) Family History Mother , 66 Ruptured cerebral aneurysm Father , 88 Diabetes Depression Hypertension Dementia Sister Diabetes Breast cancer 40s Sister No problems noted. Brother No problems noted. Brother No problems noted. Brother Parkinson disease Brother Diabetes Paternal Grandfather Stroke Paternal Grandmother , 70 Depression Maternal Grandfather No problems noted. Maternal Grandmother Liver cancer Social History Smoking/Tobacco Use Status: Never Second Hand Exposure: Yes Smoking risk assessment performed?: Yes Alcohol Intake: current Alcohol Intake frequency: a few times a week Alcohol type: beer, wine and hard liquor Drug use: Never Substance use type: does not use Caregiver/Support person: No Household members: spouse Housing: house Communication Needs: Corrective Lenses Do you need help understanding health information?: Rarely Pets and animals: Yes Pets and animals: cat(s) Sexually active: Yes Do you think of yourself as: lesbian/purvis/homosexual Current gender identity: female What is your relationship status?: How often do you talk on the phone with friends or family?: three or more times per week How often do you get together with friends or relatives?: once per week How often do you attend confucianism or yarsanism services?: 4 or more times per year Do you belong to any clubs or organized social groups?: no Panel score (0-1 are the most socially isolated patients): 3 What type of physical activity do you participate in: walking, swimming and other Details: Gardening Duration: 45-60 minutes/day Frequency: 3-4 times per week Willa/Bahai: Alevism Special willa needs: No Agree to transfusion: No Do you feel safe at home: Yes Do you feel safe in your relationship?: Yes Additional Social history: unable to assess privately-10/23/22 Female Reproductive History Menstrual Menopause type: surgical History History 0 Para Hx # Term Pregnancies Multiple births Hx # Pregnancies Ectopic pregnancies AB induced Hx Number of Living Children AB spontaneous
[2023-12-16 07:43] LABS: Abs Immature Grans 0.03 10^3/uL (0.0-0.06); Absolute Basophil Count 0.05 10^3/uL (0.0-0.2); Absolute Lymphocyte Count 1.43 10^3/uL (1.2-3.4); Absolute Monocyte Count 0.41 10^3/uL (0.1-0.8); Absolute Neutrophil Count 6.21 10^3/uL (1.2-6.7); Basophils % 0.6 %; Eosinophils % 1.2 %; HCT 38.6 % (36.0-46.0); HGB 12.9 g/dL (11.2-15.7); Immature Grans % 0.4 %; Lymphocytes % 17.4 %; MCH 29.2 pg (27.0-33.0); MCHC 33.4 % (32.0-36.0); MCV 87 fL (80-95); MPV 11.3 fL (8.0-11.0); Neutrophils % 75.4 %; Platelet Count 210 10^3/uL (130-400); RBC 4.42 10^6/uL (3.93-5.22); RDW 13.9 % (11.7-14.6); RDW-SD 44.5 fL; WBC 8.23 10^3/uL (4.4-10.8)
[2023-12-16] MEDS: Meclizine 25 MG TAB PO ×3 (07:50→21:05)
[2023-12-16] MEDS: Ondansetron 4 MG/2 ML VIAL IVP (07:50)
[2023-12-16] MEDS: Normal Saline 1,000 ML 1000 ML IV (07:50)
[2023-12-16 08:05] LABS: ALT 27 U/L (14-59); AST 15 U/L (15-37); Albumin 3.8 g/dL (3.4-5.0); Alkaline Phosphatase 66 U/L (46-116); Anion Gap 5.5 mmol/L (3-11); BUN 16 mg/dL (7-18); Bilirubin, Total 0.53 mg/dL (0.2-1.0); CO2 30.5 mmol/L (21.0-32.0); CREATININE 0.9 mg/dL (0.55-1.02); Calcium 9.2 mg/dL (8.5-10.1); Chloride 104 mmol/L (98-107); Estimated GFR 72.73 (mL/min/1.73m2); Glucose 126 mg/dL (74-106); Potassium 3.6 mmol/L (3.5-5.1); Sodium 140 mmol/L (136-145); Total Protein 7.7 g/dL (6.4-8.2)
--- NOTE | 2023-12-16 08:49 | DI.VRAD_ITS ---
PROCEDURE INFORMATION: Preliminary report Exam: CT Head Without Contrast Exam date and time: 12/16/2023 8:09 AM Age: 63 years old Clinical indication: Dizziness TECHNIQUE: Imaging protocol: Computed tomography of the head without contrast. COMPARISON: No relevant prior studies available. FINDINGS: Brain: Symmetric caliber of the cortical sulci. No acute cortical infarct, mass effect, or intracranial hemorrhage. Minimal small vessel ischemic change. Cerebral ventricles: Normal caliber of the ventricles. Paranasal sinuses: Low-grade maxillary sinus mucoperiosteal disease. Mastoid air cells: No mastoid effusion. Bones: No acute calvarial pathology. Soft tissues: Unremarkable soft tissues. IMPRESSION: No acute intracranial pathology. Dictated and Authenticated by: Dennis Ferrell MD. Ordering:VERNON Whyte MD
[2023-12-16] MEDS: diazePAM 5 MG TAB PO (09:12)
--- NOTE | 2023-12-16 12:01 | HPE_ITS ---
Date of service: 12/16/23 Time of Service: 12:01 Assessment and Plan Assessment and plan (1) Dizziness: Status: Acute Assessment and plan: referred to observation, symptoms resolved prior to admission continue scheduled meclizine PT consultation for evaluation telemetry monitoring brain MRI to r/o posterior circulation CVA (2) Essential tremor: Status: Chronic Assessment and plan: continue propanolol discussed with DR Lambert History of Present Illness History of Present Illness Chief Complaint: dizziness Narrative: This is a 63-year-old female past medical history significant for obstructive sleep apnea, syncope, osteoarthritis, recurrent kidney stones, essential tremor who presented to the emergency department for evaluation of reports of dizziness. She states that occurred 2 days ago after leaving work mild at that time has not had any recent illness fever chills nausea or vomiting. She does report symptoms have been self-limiting and do resolve. She reports difficulty with ambulation when she has her symptoms. States position changes make it worse. She did receive meclizine in the emergency department her workup was otherwise unremarkable. She is symptom-free at time of admission. Plan in the emergency department is to admit for brain MRI to rule out posterior circulation CVA Review of Systems All systems reviewed & are unremarkable except as noted in HPI and below Constitutional Constitutional: Reports as per HPI PFSH All Active Problems (Updated 12/16/23 @ 12:48 by Moira Akers MD) Dizziness (Acute) Obstructive sleep apnea (Chronic) Mild, position changes Essential tremor (Chronic) Hyperlipidemia (Chronic) Recurrent kidney stones (Chronic) RLS (restless legs syndrome) (Chronic) Chronic pain of right ankle (Chronic) Primary osteoarthritis of both knees (Chronic) Obesity (BMI 30-39.9) (Chronic) Medical History Generalized anxiety disorder Major depressive disorder Recurrent cystitis Neurocardiogenic syncope heat, abdominal cramping, blood are triggers Tubular adenoma of colon (~12/23/12) On 2012 colonoscopy Endometriosis Surgical History H/O colonoscopy (~10/23/22) H/O flexible sigmoidoscopy (2021) S/P cholecystectomy History of total hysterectomy with bilateral salpingo-oophorectomy (BSO) (~1998) Family History Mother , 66 Ruptured cerebral aneurysm Father , 88 Diabetes Depression Hypertension Dementia Sister Diabetes Breast cancer 40s Sister No problems noted. Brother No problems noted. Brother No problems noted. Brother Parkinson disease Brother Diabetes Paternal Grandfather Stroke Paternal Grandmother , 70 Depression Maternal Grandfather No problems noted. Maternal Grandmother Liver cancer Social History Smoking/Tobacco Use Status: Never Second Hand Exposure: Yes Smoking risk assessment performed?: Yes Alcohol Intake: current Alcohol Intake frequency: a few times a week Alcohol type: beer, wine and hard liquor Drug use: Never Substance use type: does not use Caregiver/Support person: No Household members: spouse Housing: house Communication Needs: Corrective Lenses Do you need help understanding health information?: Rarely Pets and animals: Yes Pets and animals: cat(s) Sexually active: Yes Do you think of yourself as: lesbian/purvis/homosexual Current gender identity: female What is your relationship status?: How often do you talk on the phone with friends or family?: three or more times per week How often do you get together with friends or relatives?: once per week How often do you attend orthodox or pentecostalism services?: 4 or more times per year Do you belong to any clubs or organized social groups?: no Panel score (0-1 are the most socially isolated patients): 3 What type of physical activity do you participate in: walking, swimming and other Details: Gardening Duration: 45-60 minutes/day Frequency: 3-4 times per week Willa/Druze: Islam Special willa needs: No Agree to transfusion: No Do you feel safe at home: Yes Do you feel safe in your relationship?: Yes Additional Social history: unable to assess privately-10/23/22 Female Reproductive History Menstrual Menopause type: surgical History History 2 0 Para Hx # Term Pregnancies Multiple births Hx # Pregnancies Ectopic pregnancies AB induced Hx Number of Living Children AB spontaneous Meds Allergies and Home Medications Allergies Allergy/AdvReac Type Severity Reaction Status Date / Time No Known Allergies Allergy Verified 12/16/23 06:43 Home Medications ?Medication ?Instructions ?Recorded ?Confirmed ?Type ibuprofen 600 mg tablet 600 mg PO TID PRN pain #20 tabs 09/28/18 12/16/23 Rx cholecalciferol (vitamin D3) 25 25 mcg PO DAILY 03/30/23 12/16/23 History mcg (1,000 unit) capsule propranolol 20 mg tablet 20 mg PO BID #180 tabs 06/04/23 12/16/23 Rx Exam Narrative Exam Narrative: White female stated age in no acute distress sitting on the edge of her bed eating dinner head is atraumatic eyes nonicteric noninjected EOMs intact oral mucosa is moist neck supple full range of motion respirations even and unlabored she is pink warm dry well-perfused awake alert oriented no focal deficits. Skin with no rashes or lesions abdomen benign. Results Labs 12/16/23 07:33 12/16/23 07:33 Labs: Laboratory Results - last 24 hr 12/16/23 07:33 WBC 8.23 RBC 4.42 Hgb 12.9 Hct 38.6 MCV 87 MCH 29.2 MCHC 33.4 RDW 13.9 Plt Count 210 MPV 11.3 H Immature Gran % 0.4 Neutrophils % 75.4 Lymphocytes % 17.4 Monocytes % 5.0 Eosinophils % 1.2 Basophils % 0.6 Nucleated RBC % 0.0 Absolute Neutrophils 6.21 Absolute Lymphocytes 1.43 Absolute Monocytes 0.41 Absolute Eosinophils 0.10 Absolute Basophils 0.05 Sodium 140 Potassium 3.6 Chloride 104 Carbon Dioxide 30.5 Anion Gap 5.5 BUN 16 Creatinine 0.9 Est GFR (CKD-EPI 2020) 72.73 Glucose 126 H Calcium 9.2 Total Bilirubin 0.53 AST 15 ALT 27 Alkaline Phosphatase 66 Total Protein 7.7 Albumin 3.8 Last Vital Signs Temp 36.7 C 12/16/23 06:36 Pulse 56 L 12/16/23 10:50 Resp 17 12/16/23 10:51 BP 129/66 12/16/23 10:50 Pulse Ox 98 12/16/23 10:51 Time Spent Time spent with Patient: 40-54 minutes Time was spent: preparing to see the patient(eg.review tests), obtaining and/or reviewing separately otained hiistory, ordering medications,tests, procedures and indepentently interpreting results
--- NOTE | 2023-12-16 12:17 | W.PC.ACHO ---
Registration Status: Primary Language: Preferred Language: ED Information & Data Chief Complaint Dizzy/Sync 12/16/23 07:09 Triage Note I don't know where my body 12/16/23 06:36 is in space. Vomiting, room spinning, worse when moves head to the right. No diarrhea, no pain. No fevers . Denies CP or SOB. Medical / Surgical History (Last Reviewed 12/16/23 @ 07:06 by Moira Akers MD) Generalized anxiety disorder Major depressive disorder Recurrent cystitis Neurocardiogenic syncope Tubular adenoma of colon (~12/23/12) Endometriosis (Last Reviewed 12/16/23 @ 07:06 by Moira Akers MD) H/O colonoscopy (~10/23/22) H/O flexible sigmoidoscopy (2021) S/P cholecystectomy History of total hysterectomy with bilateral salpingo-oophorectomy (BSO) (~1998) Most Recent Vital Signs Temperature 36.7 C 12/16/23 06:36 Temperature Source Oral 12/16/23 06:36 Pulse 61 12/16/23 12:00 Pulse 61 12/16/23 12:01 Respiratory Rate 14 12/16/23 12:01 Respiratory Effort Normal 12/16/23 06:44 Respiratory Depth Normal 12/16/23 06:44 Respiratory Pattern Normal 12/16/23 06:44 Blood Pressure 140/79 12/16/23 12:00 Blood Pressure Mean 98 12/16/23 12:00 Blood Pressure Position Sitting 12/16/23 06:36 Pulse Oximetry 97 12/16/23 12:01 Oxygen Delivery Method Room Air 12/16/23 06:36 Oxygen Flow Rate 0 12/16/23 06:36 Pain Level 0 12/16/23 06:36 Allergies No Known Allergies Allergy (Verified 12/16/23 06:43) Active Medications Generic Name Dose Route Start Last Admin Trade Name Freq PRN Reason Stop Dose Admin Sodium Chloride 0 ml 12/16/23 08:30 12/16/23 09:31 Normal Saline Flush 10 Ml Syr IVP Not Given BID [place] IV IV Catheter Type [Right Peripheral IV Antecubital] IV Catheter Gauge [Right 18 Antecubital] Diagnostics 12/16/23 Range/Units 07:33 WBC 8.23 (4.4-10.8) 10^3/uL RBC 4.42 (3.93-5.22) 10^6/uL Hgb 12.9 (11.2-15.7) g/dL Hct 38.6 (36.0-46.0) % MCV 87 (80-95) fL MCH 29.2 (27.0-33.0) pg MCHC 33.4 (32.0-36.0) % RDW 13.9 (11.7-14.6) % Plt Count 210 (130-400) 10^3/uL MPV 11.3 H (8.0-11.0) fL Immature Gran % 0.4 % Neutrophils % 75.4 % Lymphocytes % 17.4 % Monocytes % 5.0 % Eosinophils % 1.2 % Basophils % 0.6 % Nucleated RBC % 0.0 (0.0-0.3) % Absolute Neutrophils 6.21 (1.2-6.7) 10^3/uL Absolute Lymphocytes 1.43 (1.2-3.4) 10^3/uL Absolute Monocytes 0.41 (0.1-0.8) 10^3/uL Absolute Eosinophils 0.10 (0.0-0.7) 10^3/uL Absolute Basophils 0.05 (0.0-0.2) 10^3/uL Sodium 140 (136-145) mmol/L Potassium 3.6 (3.5-5.1) mmol/L Chloride 104 (98-107) mmol/L Carbon Dioxide 30.5 (21.0-32.0) mmol/L Anion Gap 5.5 (3-11) mmol/L BUN 16 (7-18) mg/dL Creatinine 0.9 (0.55-1.02) mg/dL Est GFR (CKD-EPI 2020) 72.73 (mL/min/1.73m2) Glucose 126 H (74-106) mg/dL Calcium 9.2 (8.5-10.1) mg/dL Total Bilirubin 0.53 (0.2-1.0) mg/dL AST 15 (15-37) U/L ALT 27 (14-59) U/L Alkaline Phosphatase 66 (46-116) U/L Total Protein 7.7 (6.4-8.2) g/dL Albumin 3.8 (3.4-5.0) g/dL Intake and Output - 24 Hour Total 12/16/23 06:31 thru 12/16/23 11:32 Intake Total 1260 Balance 1260 Weight 111.13 kg Intake: IV 1010 Oral 250 Falls Risk Assessment History of Falls Previous History 12/16/23 06:44 Contributing Factors Confusion,Unstable, 12/16/23 06:44 Impairments Ambulatory Aids Independent 12/16/23 06:44 Tubes/Lines None 12/16/23 06:44 Gait Evaluation W/no contributing factors 12/16/23 06:44 Cognition No cognitive impairment 12/16/23 06:44 Fall Total Score 34 12/16/23 06:44 Level of Risk Moderate Risk 12/16/23 06:44 Problems (Last Reviewed 12/16/23 @ 07:06 by Moira Akers MD) Dizziness (Acute) Essential tremor (Chronic) v v v v v v v v v Sending and/or Receiving Nurses: Please use comment section below to note any information pertinent to the patient hand-off not included above. Information / Comments: Report received from:Clarissa Oconnor RN
--- NOTE | 2023-12-16 12:56 | PHA.REVIEW2 ---
Pharmacy Admission Review Admission Clinical Review Admission Pharmacy Review: Dizziness (Acute) No Known Allergies Allergy (Verified 12/16/23 06:43) Resuscitation Status Full Code Height 5 ft 8 in Weight 110.677 kg Pharmacy Admission Review Renal Dosing Renal Dosing: BUN 16 mg/dL (7-18) 12/16/23 07:33 Creatinine 0.9 mg/dL (0.55-1.02) 12/16/23 07:33 Medications needing adjustments: Reviewed (CrCl 77.05 mL/min) List of meds needing interventions: Current medications are okay Anticoagulation Anticoagulation: Hgb 12.9 g/dL (11.2-15.7) 12/16/23 07:33 Hct 38.6 % (36.0-46.0) 12/16/23 07:33 Plt Count 210 10^3/uL (130-400) 12/16/23 07:33 Creatinine 0.9 mg/dL (0.55-1.02) 12/16/23 07:33 DVT Prophylaxis: Reviewed (TEDs) Relevant Labs Relevant Labs: Sodium 140 mmol/L (136-145) 12/16/23 07:33 Potassium 3.6 mmol/L (3.5-5.1) 12/16/23 07:33 Chloride 104 mmol/L (98-107) 12/16/23 07:33 Electrolytes, C-Reactive P, ESR: Reviewed (glucose 126) Cardiac Review BP, HR, EF%: Reviewed (BP and HR WNL) QTc Review QTc: Reviewed (435 from 12/16/23) IV to PO Switch IV Medications: Reviewed (ondansetron) Home Meds Home Med List reviewed: Reviewed Current Meds Current Medication Order Review: Reviewed
--- NOTE | 2023-12-16 20:00 | RESPIRATORY ---
RT spoke with pt. for LISANDRA. Pt. currently does not use CPAP machine. Pt. stated she has had second sleep study on 2020 which justified mild sleep apnea with position changes that indicated disqualified to have the CPAP machine.
[2023-12-16] MEDS: Propranolol 20 MG TAB PO (21:05)
[2023-12-16] MEDS: Normal Saline Flush 10 ML SYR IVP (21:05)
[2023-12-17] MEDS: Ibuprofen 600 MG TAB PO ×2 (03:59→12:31)
[2023-12-17 04:00] VITALS: BP 118/60; PULSE 54; RESP 18; TEMP 36.2; O2SAT 94
[2023-12-17 07:07] LABS: Abs Immature Grans 0.06 10^3/uL (0.0-0.06); Absolute Basophil Count 0.06 10^3/uL (0.0-0.2); Absolute Eosinophil Count 0.15 10^3/uL (0.0-0.7); Absolute Monocyte Count 0.49 10^3/uL (0.1-0.8); Absolute Neutrophil Count 5.34 10^3/uL (1.2-6.7); Basophils % 0.7 %; Eosinophils % 1.8 %; HCT 39.7 % (36.0-46.0); HGB 12.8 g/dL (11.2-15.7); Immature Grans % 0.7 %; Lymphocytes % 25.6 %; MCH 28.2 pg (27.0-33.0); MCHC 32.2 % (32.0-36.0); MCV 87 fL (80-95); MPV 11.5 fL (8.0-11.0); Neutrophils % 65.2 %; Platelet Count 212 10^3/uL (130-400); RBC 4.54 10^6/uL (3.93-5.22); RDW 14.2 % (11.7-14.6); RDW-SD 45.4 fL
[2023-12-17 07:21] LABS: Anion Gap 6.9 mmol/L (3-11); BUN 15 mg/dL (7-18); CO2 29.1 mmol/L (21.0-32.0); CREATININE 0.9 mg/dL (0.55-1.02); Calcium 9.4 mg/dL (8.5-10.1); Chloride 105 mmol/L (98-107); Estimated GFR 72.73 (mL/min/1.73m2); Glucose 120 mg/dL (74-106); Potassium 3.8 mmol/L (3.5-5.1); Sodium 141 mmol/L (136-145)
--- NOTE | 2023-12-17 08:00 | DI.MRI_ITS ---
Exam(s) MR BRAIN WO EXAM: MR BRAIN WO CLINICAL HISTORY: dizziness, r/o posterior circulation CVA TECHNIQUE: Multiplanar multisequence MRI of the brain was performed. COMPARISON: CT CT HEAD WO from 12/16/2023 FINDINGS: VENTRICLES AND EXTRA AXIAL SPACES: Normal in size and morphology for the patient's age. MIDLINE SHIFT: None. CEREBRAL PARENCHYMA: No focus of restricted diffusion to suggest acute infarct. No space-occupying le huy identified. Minimal scattered foci of high signal in the white matter consistent with sequela o f chronic microvascular disease. HEMORRHAGE: None. BRAINSTEM/CEREBELLUM: Normal. VISUALIZED PARANASAL SINUSES/MASTOIDS:Minimal left maxillary sinus mucosal thickening. Vasculature: Normal flow void. PITUITARY GLAND: Unremarkable. ORBITS: Unremarkable. IMPRESSION: Unremarkable MRI of the brain. DATA REPOSITORY:
[2023-12-17 08:20] VITALS: BP 130/70; PULSE 54; RESP 16; TEMP 36.5; O2SAT 96
[2023-12-17] MEDS: Meclizine 25 MG TAB PO ×2 (08:21→13:35)
[2023-12-17] MEDS: Cholecalciferol (Vitamin D3) 1,000 UNIT TAB 1000 UNITS PO (08:21)
[2023-12-17] MEDS: Normal Saline Flush 10 ML SYR IVP ×2 (08:21→10:46)
--- NOTE | 2023-12-17 09:56 | PDOC.CMIN ---
Date of service: 12/17/23 Time of Service: 09:56 Care Management Initial Assmt Initial Assessment Reason for Hospitalization: Dizziness Functional Status/Living Situation Patient Presentation: Bia was lying in bed watching TV, Guillermina is near the bed sitting in a chair. Bia is pleasant and easily engages in concernsation. Town of Residence: [place] Resides with: Spouse (Margi) Natural Supports: No local family other than Margi. Employment Status: Employed ([employer]) Instrumental Activities of Daily Living (ADLs): Independent Medications Medication Management: No Issues/Barriers identified Physical Functioning/Mobility Assistive Device: None Advance Directives Advance Directives: Do you have an Advance Directive: Y 05/13/20 12:35 AD On File at [facility]: Y 05/13/20 12:35 Date Asked AD Date Reviewed 12/16/23 12/16/23 12:24 COLST On File at [facility] COLST Date Scanned Code Status Resuscitation Status Full Code Insurance Coverage/Financial Issues Insurance: Health Plans Financial Issues: Denies Care Team Visit Care Team Role Provider Type Natalie Sanchez NP Primary Care Provider NURSE PRACTITIONER InPatient Noel Menezes Other Providers OTHER Moira Akers MD Emergency Provider [facility] STAFF PHYSICIAN Gennaro Lambert MD Admit Provider [facility] STAFF PHYSICIAN Attending Provider Discharge Potential Discharge Needs: PCP F/U Appt Anticipated Barriers to Discharge: None Identified Patient/Family Education Needs: Review discharge instructions, discuss Ask Me Three Transportation: Private vehicle Plan: Anticipate, Bia will discharge home via private vehicle with Margi when medically cleared by provider. Pt will follow up with community providers and her discharge plan of care as instructed. No new services are anticipated at this time. CM will follow and support discharge planning considerations. PFSH All Active Problems (Updated 12/16/23 @ 12:48 by Moira Akers MD) Dizziness (Acute) Obstructive sleep apnea (Chronic) Mild, position changes Essential tremor (Chronic) Hyperlipidemia (Chronic) Recurrent kidney stones (Chronic) RLS (restless legs syndrome) (Chronic) Chronic pain of right ankle (Chronic) Primary osteoarthritis of both knees (Chronic) Obesity (BMI 30-39.9) (Chronic) Medical History Generalized anxiety disorder Major depressive disorder Recurrent cystitis Neurocardiogenic syncope heat, abdominal cramping, blood are triggers Tubular adenoma of colon (~12/23/12) On 2012 colonoscopy Endometriosis Surgical History H/O colonoscopy (~10/23/22) H/O flexible sigmoidoscopy (2021) S/P cholecystectomy History of total hysterectomy with bilateral salpingo-oophorectomy (BSO) (~1998) Family History Mother , 66 Ruptured cerebral aneurysm Father , 88 Diabetes Depression Hypertension Dementia Sister Diabetes Breast cancer 40s Sister No problems noted. Brother No problems noted. Brother No problems noted. Brother Parkinson disease Brother Diabetes Paternal Grandfather Stroke Paternal Grandmother , 70 Depression Maternal Grandfather No problems noted. Maternal Grandmother Liver cancer Social History Smoking/Tobacco Use Status: Never Second Hand Exposure: Yes Smoking risk assessment performed?: Yes Alcohol Intake: current Alcohol Intake frequency: a few times a week Alcohol type: beer, wine and hard liquor Drug use: Never Substance use type: does not use Caregiver/Support person: No Household members: spouse Housing: house Communication Needs: Corrective Lenses Do you need help understanding health information?: Rarely Pets and animals: Yes Pets and animals: cat(s) Sexually active: Yes Do you think of yourself as: lesbian/purvis/homosexual Current gender identity: female What is your relationship status?: How often do you talk on the phone with friends or family?: three or more times per week How often do you get together with friends or relatives?: once per week How often do you attend rastafarian or scientology services?: 4 or more times per year Do you belong to any clubs or organized social groups?: no Panel score (0-1 are the most socially isolated patients): 3 What type of physical activity do you participate in: walking, swimming and other Details: Gardening Duration: 45-60 minutes/day Frequency: 3-4 times per week Willa/Zoroastrian: Christianity Special willa needs: No Agree to transfusion: No Do you feel safe at home: Yes Do you feel safe in your relationship?: Yes Additional Social history: unable to assess privately-10/23/22 Female Reproductive History Menstrual Menopause type: surgical History History 0 Para Hx # Term Pregnancies Multiple births Hx # Pregnancies Ectopic pregnancies AB induced Hx Number of Living Children AB spontaneous SDOH(Care Management) Screening Will the Patient Participate in the Screening?: Unable to obtain
--- NOTE | 2023-12-17 10:15 | W.PM.PROGNOT ---
Date of Service Date of service: 12/17/23 Time of Service: 10:15 Assessment and Plan Assessment and plan (1) Dizziness: Status: Acute Assessment and plan: referred to observation, symptoms resolved prior to admission continue scheduled meclizine PT consultation for evaluation telemetry monitoring brain MRI to r/o posterior circulation CVA (2) Essential tremor: Status: Chronic Assessment and plan: continue propanolol discussed with DR Lambert Exam Narrative Exam Narrative: White female stated age in no acute distress sitting on the edge of her bed eating dinner head is atraumatic eyes nonicteric noninjected EOMs intact oral mucosa is moist neck supple full range of motion respirations even and unlabored she is pink warm dry well-perfused awake alert oriented no focal deficits. Skin with no rashes or lesions abdomen benign. Objective Last Vital Signs Temp 36.5 C 12/17/23 08:20 Pulse 54 L 12/17/23 08:20 Resp 16 12/17/23 08:20 BP 130/70 12/17/23 08:20 Pulse Ox 96 12/17/23 08:20 Laboratory Results - last 24 hr 12/17/23 06:45 WBC 8.20 RBC 4.54 Hgb 12.8 Hct 39.7 MCV 87 MCH 28.2 MCHC 32.2 RDW 14.2 Plt Count 212 MPV 11.5 H Immature Gran % 0.7 Neutrophils % 65.2 Lymphocytes % 25.6 Monocytes % 6.0 Eosinophils % 1.8 Basophils % 0.7 Nucleated RBC % 0.0 Absolute Neutrophils 5.34 Absolute Lymphocytes 2.10 Absolute Monocytes 0.49 Absolute Eosinophils 0.15 Absolute Basophils 0.06 Sodium 141 Potassium 3.8 Chloride 105 Carbon Dioxide 29.1 Anion Gap 6.9 BUN 15 Creatinine 0.9 Est GFR (CKD-EPI 2020) 72.73 Glucose 120 H Calcium 9.4
[2023-12-17] MEDS: Ondansetron 4 MG/2 ML VIAL IVP (10:46)
[2023-12-17 11:27] VITALS: BP 136/81; PULSE 51; RESP 15; TEMP 36.8; O2SAT 99
--- NOTE | 2023-12-17 13:27 | PT.INIE ---
PT Notes Visit Reasons: Dizziness PT Inpatient Vertigo Evaluation Date: 12/17/23 Referring Doctor: Neema Gasca NP PT Orders: dizziness Precautions: standard Patient Profile/Admitting Diagnosis: Pt is a 63 year old female admitted with acute dizziness. CT scan in ED was benign, and MRI performed this morning. PT consult requested today. Social History/Home Situation: Patient lives in a private home with her , who is present at time of consult. They are currently packing their home, with plans to move to [place] later this week. 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 Fully independent at baseline. Equipment owned/DME: FWW at home from her 's knee surgery SUBJECTIVE: Bia reports acute onset dizziness when getting out of her car 4 days ago. States that she turned to get out of the car and felt a quick spinning sensation that resolved in seconds. This returned when getting back into the car. The next morning when getting out of bed, she had the same sensation but more severe, resulting in a fall and vomiting. She remains extremely dizzy. Denies recent illness. Symptoms: Onset of symptoms: 12/15/23 Trauma: No Exacerbating Factors: moving head, motion Relieving Factors: resting with eyes closed Types of Dizziness: room spinning Headaches: No Balance Deficits: Yes Hearing Loss: No Tinnitis: No OBJECTIVE: General Observation: Resting in dark room, eyes closed, emesis bag in hand. Patient recieved Zofran just prior to session Mental Status: A&Ox3 ROM: UE and LE ROM WFL ROM Cervical Spine : Grossly WFL. Slow and cautious with all movement. Dizziness provoked in cervical extension. Vertebral Artery Screening: Negative. Experiences brief dizziness attaining position, with symptoms improving within seconds. Sustained End Range of Motion: (+ or ? for dizziness) Negative into rotation to each side ROM RUE: WFL L UE: WFL R LE: WFL LLE: WFL STRENGTH: R UE: Grossly WFL L UE: Grossly WFL R LE: WFL LLE: WFL NEUROLOGICAL: Fine Motor: thumb to digits WNL Coordination intact Rhomberg: not assessed due to instability in static standing III Occulomotor eyelid movement/ptosis, upward gaze normal IV Trochlear downward/medial eye movement normal V Trigeminal facial sensation, mouth opening (deviation to weak side) normal Abducens lateral eye movement normal VII Facial facial weakness normal VIII Auditory hearing diminished hearing on right side XI Accessory Shoulder elevation normal OCCULOMOTOR Visual Tracking: normal Head Thrust: (+) to the right Hints: Spontaneous Nystagmus: (+) for horizontal nystagmus in all directions of gaze Test of Skew: normal Head Thrust: (+) to the right Testing for BPPV: Xavier-Halpike: (+) to the left, with left torsional nystagmus. (-) to the right Lateral Body Position: mild dizziness, with non-fatiguing horizontal nystagmus BED MOBILITY/TRANSFERS: Supine-sit: independent Sit-supine: independent Sit-Stand: independent Stand-sit: independent Bed-Chair: independent with FWW Chair-bed:independent with FWW GAIT: Ambulates 15' in the room with FWW, independently. Demonstrates slow, cautious gait. BALANCE: Static sitting: normal Dynamic Sitting: good (cautious) Static Standing: fair Dynamic Standing: fair SPECIAL TESTS: Mobility Limitations Standardized Measure: [facility] AM -PAC ?6 clicks? Basic Mobility Inpatient Short Form: raw score: 24 CMS score: 0% impairment INFORMED CONSENT/EDUCATION: Pt instructed in purpose of PT Consult and plan of care TReatment: Initial Evaluation )(48151) Neuromuscular Re-education (45382) Treated with left Geo maneuver, 3 reps, 90 second holds each. Treated with hybrid rescue maneuver to address potential horizontal canal involvement, 90 second holds, 1 rep. PATIENT EDUCATION PRECAUTIONS POST TREATMENT: No Bending over or rapid head movements HOB elevated > 45 degrees Drink plenty of water ASSESSMENT: Patient is a 63 year old female referred to physical therapy services with diagnosis of dizziness. Patient presents with clinical signs and symptoms consistent with left posterior canal BPPV. She does have a persistent horizontal nystagmus, as well, which she reports has been present for at least a year. There is certainly a component of peripheral vertigo here, however will await testing results to rule out central component as well given her non-mechanical and non-fatiguing horizontal nystagmus. Hints testing is encouraging for peripheral source. She was treated with both Geo maneuver (posterior canal) and Hybrid Rescue Maneuver (horizontal canal) and will see how she responds to that. Strongly recommend outpatient PT for vestibular rehab upon discharge. She currently demonstrates the following impairment level findings: 1. dizziness and torsional nystagmus with left Xavier-Halpike 2. persistent dizziness 3. imbalance Impairments are contributing to the following functional limitations: 1. unable to ambulate without FWW 2. dizziness with position changes Patient is assessed as a Moderate 25092 complexity based on the following: History: Acute onset dizziness in patient with chronic horizontal nystagmus. Awaiting MRI results to rule out central source contributing to symptoms. Examination: functional limitations as noted above Presentation: evolving Decision Making: moderate complexity GOALS 1. Able to ambulate confidently up to 100' without loss of balance, with use of least restrictive device. PLAN OF CARE/TREATMENT PLAN: 1-2x/day, 7 days/ week Plan of care has been reviewed with the SLEEPING ROOM CLEANER providing the service under Physical therapy direction. Initiate PT plan of care for strengthening, bed mobility, transfer training, gait training, use of assistive devices, balance training, and stair training. Will continue monitoring for symptoms of dizziness and treat with canalith repositioning techniques as needed. DISCHARGE RECOMMENDATIONS: Home with outpatient PT TREATMENT TIME/MINUTES/CODES: [id number] ([id number], [id number]) Thank you for this referral. Please do not hesitate to contact me with any questions or concerns regarding this patient's POC. Ivis Gee, PT, DPT, [facility] All Active Problems (Updated 12/16/23 @ 12:48 by Moira Akers MD) Dizziness (Acute) Obstructive sleep apnea (Chronic) Mild, position changes Essential tremor (Chronic) Hyperlipidemia (Chronic) Recurrent kidney stones (Chronic) RLS (restless legs syndrome) (Chronic) Chronic pain of right ankle (Chronic) Primary osteoarthritis of both knees (Chronic) Obesity (BMI 30-39.9) (Chronic) Medical History Generalized anxiety disorder Major depressive disorder Recurrent cystitis Neurocardiogenic syncope heat, abdominal cramping, blood are triggers Tubular adenoma of colon (~12/23/12) On 2012 colonoscopy Endometriosis Surgical History H/O colonoscopy (~10/23/22) H/O flexible sigmoidoscopy (2021) S/P cholecystectomy History of total hysterectomy with bilateral salpingo-oophorectomy (BSO) (~1998)
[2023-12-17 16:43] VITALS: BP 121/73; BP 125/74; BP 126/75; PULSE 53; PULSE 55; PULSE 69; RESP 16; TEMP 36.6; O2SAT 95
--- NOTE | 2023-12-17 17:11 | DSE_ITS ---
Date of service: 12/17/23 Time of Service: 17:11 DS: Diagnosis Discharge Diagnosis (1) Dizziness: Status: Acute (2) Essential tremor: Status: Chronic Discharge Plan Disposition Patient Disposition: Home Condition: Improving Discharge Details Reason For Visit: Dizziness Admit Date/Time: 12/16/23 11:58 Admit Provider: Gennaro Lambert Attending Provider: Gennaro Lambert [facility] Hospital Course: This 63 years old female patient with past medical history significant for obstructive sleep apnea, syncope, osteoarthritis, recurrent kidney stones, essential tremors presented to the ED at [facility] on 12/16/2023 for evaluation of dizziness. The patient stated that it occurred 2 days prior to presentation after leaving work, symptoms described as mild with the patient denying any recent illness, fever, chills, nausea, or vomiting. She reported that the symptoms have been resolving spontaneously. Had difficulty walking when symptoms were exacerbated with worsening with change in position. The workup in the ED was unremarkable with head CT negative for acute changes. The patient was admitted to the medical surgical floor for the hospitalist team for evaluation and management of dizziness with plan to complete a brain MRI to rule out posterior circulation CVA. During the stay, the patient continued to receive meclizine and Zofran for symptom control. MRI was completed without any acute findings. Physical therapy consultation was completed; it included treatment with left Geo maneuver as well hybrid rescue maneuver with improvement of symptoms. Medical therapy recommendations are for home with outpatient physical therapy plan. The patient reported potential dehydration prior to the stay due to physical work in humid and hot weather. Orthostatic vital signs were completed and were negative. Chemistry blood work din not reflect dehydration.The patient was on propranolol 20 mg orally twice a day at home: Doses were held due to heart rate in thelow to mid 50s . The patient will be discharged home on a reduced dose of propranolol of 10 mg orally twice a day. Further adjustment to be made by primary care practitioner. The patient will be discharge home today and will have a follow- up with his primary care practitioner within 7 days of discharge to discuss outpatient physical therapy referral. The patient will be discharged home with short courses of as needed meclizine and as needed Zofran. Discussed with Dr. Lambert Home Meds and New Rx's Prescriptions: New meclizine 25 mg Tablet 25 mg PO TID PRNQty: 15 0RF ondansetron 4 mg tablet,disintegrating 4 mg PO Q8H PRNQty: 10 0RF Continued cholecalciferol (vitamin D3) 25 mcg (1,000 unit) capsule 25 mcg PO DAILY ibuprofen 600 mg tablet 600 mg PO TID PRN (Reason: pain) Qty: 20 0RF Changed propranolol 20 mg tablet 10 mg PO BID Qty: 180 3RF Discharge Instructions Referrals: Natalie Sanchez NP [Primary Care Provider] - (F/u within 7 days of discharge with PCP please ) Activity:: Activity as Tolerated Equipment/Supplies:: No Equipment Needed Diet:: As Tolerated DS: Summary Time Spent with Patient providing and/or coordinating discharge services: Greater than 30 minutes Status at Discharge Functional status at discharge: independent ambulation Overall status at discharge: patient is progressing back to baseline Mental Status: mental status grossly normal Speech and Movement: speech and movement normal Mood: congruent mood Affect: normal affect Quality:SDOH Health Related Social Needs: No Data to Display Exam Narrative Exam Narrative: Constitutional The patient is lying in bed comfortable w/o acute distress HENMT: Facial structures with normal appearance Neuro:alert and oriented to self, person, place time and situation. No neurological focal deficit Resp:Clear lung bilaterally Cardio: regular rhythm, S1, S2, no murmur, positive pedal and radial pulses bilaterally. GI: Abdomen is not distended, soft and non tender, bowel sounds are present Integumentary: No skin lesions or rash Extremities: strength 5/5 to bilateral lower and upper extremities Psych: RASS 0, congruent mood and normal affect. Psych Mental Status: mental status grossly normal Speech and Movement: speech and movement normal Mood: congruent mood Affect: normal affect DS: Data Vitals/I&O Vitals and I&O: Vital Signs Temperature 36.6 C 12/17/23 16:43 Temperature Source Temporal Artery Scan 12/17/23 16:43 Pulse 53 L 12/17/23 16:43 Pulse Rhythm Regular 12/17/23 10:56 Pulse 61 12/16/23 12:01 Respiratory Rate 16 12/17/23 16:43 Respiratory Effort Normal, Non-Labored 12/17/23 10:56 Respiratory Depth Normal 12/17/23 10:56 Respiratory Pattern Normal 12/17/23 10:56 Blood Pressure 121/73 12/17/23 16:43 Blood Pressure Mean 98 12/16/23 12:00 Blood Pressure Position Sitting 12/16/23 06:36 Pulse Oximetry 95 12/17/23 16:43 Oxygen Delivery Method Room Air 12/17/23 16:43 Oxygen Flow Rate 0 12/17/23 16:43 Pain Level 0 12/17/23 16:43 Intake & Output 12/16/23 12/17/23 12/17/23 23:59 11:59 23:59 Intake Total 222 / 1482 Balance 222 / 1482 Weight 110.677 kg Intake: Oral 222 / 472 Other: Urine Appearance Clear Comment pT states they voided recently Data Completed and Pending Labs on day of discharge: Labs from last 24 hours 12/17/23 06:45 WBC 8.20 RBC 4.54 Hgb 12.8 Hct 39.7 MCV 87 MCH 28.2 MCHC 32.2 RDW 14.2 Plt Count 212 MPV 11.5 H Immature Gran % 0.7 Neutrophils % 65.2 Lymphocytes % 25.6 Monocytes % 6.0 Eosinophils % 1.8 Basophils % 0.7 Nucleated RBC % 0.0 Absolute Neutrophils 5.34 Absolute Lymphocytes 2.10 Absolute Monocytes 0.49 Absolute Eosinophils 0.15 Absolute Basophils 0.06 Sodium 141 Potassium 3.8 Chloride 105 Carbon Dioxide 29.1 Anion Gap 6.9 BUN 15 Creatinine 0.9 Est GFR (CKD-EPI 2020) 72.73 Glucose 120 H Calcium 9.4 PFSH All Active Problems (Updated 12/16/23 @ 12:48 by Moira Akers MD) Dizziness (Acute) Obstructive sleep apnea (Chronic) Mild, position changes Essential tremor (Chronic) Hyperlipidemia (Chronic) Recurrent kidney stones (Chronic) RLS (restless legs syndrome) (Chronic) Chronic pain of right ankle (Chronic) Primary osteoarthritis of both knees (Chronic) Obesity (BMI 30-39.9) (Chronic) Medical History Generalized anxiety disorder Major depressive disorder Recurrent cystitis Neurocardiogenic syncope heat, abdominal cramping, blood are triggers Tubular adenoma of colon (~12/23/12) On 2012 colonoscopy Endometriosis Surgical History H/O colonoscopy (~10/23/22) H/O flexible sigmoidoscopy (2021) S/P cholecystectomy History of total hysterectomy with bilateral salpingo-oophorectomy (BSO) (~1998) Family History Mother , 66 Ruptured cerebral aneurysm Father , 88 Diabetes Depression Hypertension Dementia Sister Diabetes Breast cancer 40s Sister No problems noted. Brother No problems noted. Brother No problems noted. Brother Parkinson disease Brother Diabetes Paternal Grandfather Stroke Paternal Grandmother , 70 Depression Maternal Grandfather No problems noted. Maternal Grandmother Liver cancer Social History Smoking/Tobacco Use Status: Never Second Hand Exposure: Yes Smoking risk assessment performed?: Yes Alcohol Intake: current Alcohol Intake frequency: a few times a week Alcohol type: beer, wine and hard liquor Drug use: Never Substance use type: does not use Caregiver/Support person: No Household members: spouse Housing: house Communication Needs: Corrective Lenses Do you need help understanding health information?: Rarely Pets and animals: Yes Pets and animals: cat(s) Sexually active: Yes Do you think of yourself as: lesbian/purvis/homosexual Current gender identity: female What is your relationship status?: How often do you talk on the phone with friends or family?: three or more times per week How often do you get together with friends or relatives?: once per week How often do you attend methodist or yazidi services?: 4 or more times per year Do you belong to any clubs or organized social groups?: no Panel score (0-1 are the most socially isolated patients): 3 What type of physical activity do you participate in: walking, swimming and ot her Details: Gardening Duration: 45-60 minutes/day Frequency: 3-4 times per week Willa/Roman Catholic: [employer] Special willa needs: No Agree to transfusion: No Do you feel safe at home: Yes Do you feel safe in your relationship?: Yes Additional Social history: unable to assess privately-10/23/22 Female Reproductive History Menstrual Menopause type: surgical History History 0 Para Hx # Term Pregnancies Multiple births Hx # Pregnancies Ectopic pregnancies AB induced Hx Number of Living Children AB spontaneous Time Spent with Patient Time Spent with Patient: 45-69 minutes Time was spent: preparing to see the patient(eg.review tests), obtaining and/or reviewing separately otained hiistory, ordering medications,tests, procedures, referring, communicating with other health day care assistant, indepentently interpreting results, counseling the patient and care coordination
== END 2023-12-17 18:34 | disposition home or self-care (01) ==
LOC: ER 06:42 → MS 12:24
PROVIDERS: Nurse Practitioner Acute Care; Admitting Provider Family Medicine; Emergency Provider Emergency Medicine; PCP Nurse Practitioner Family; Visit Provider Family Medicine
DX: R42 Dizziness and giddiness (principal); G25.0 Essential tremor; G47.33 Obstructive sleep apnea (adult) (pediatric); E78.5 Hyperlipidemia, unspecified; G25.81 Restless legs syndrome; M17.0 Bilateral primary osteoarthritis of knee; E66.9 Obesity, unspecified; F41.1 Generalized anxiety disorder; F32.9 Major depressive disorder, single episode, unspecified
CPT/HCPCS: 00123; 36415; 80048; 80053; 93005; 96361; 96374; 96376; 97112; 97162; 99285; 70450; 70551; 85025; 93010; 99222; 99239; G0378; J2405